=== PATIENT | male | born 1950 | race Caucasian/White ===

== ENCOUNTER 2017-11-17 10:58 | Outpatient (RCR) | payer MEDICARE, OTHER, SELFPAY ==
--- NOTE | 2017-11-18 12:47 | HP.PTEVAL_ITS ---
Patient's Visit Information KEYON JOHN is a 67 year old M referred to Physical Therapy by Yumiko Ball, with a diagnosis of cervical HNP. Date of Evaluation: 11/17/17 Physical Therapist: Gerardo Will - Visit Plan Frequency: 2x /Week Duration: 4-6 Weeks Plan: Start with cervical traction with neck flexion for lower cervical, use of modalities as needed. Light cervical isometrics, scapular strengthening. I will contact physician if we are to address lumbar spine psot surgical at this point in time. - Subjective Subjective: Pt. is here today for his initial evaluation with dianosis of HNP of cervical spine. Pt. reports that he was also to have a script of his lumbar spine after surgery, but we do not have one at this time. I contacted physician about this and I am awaiting respone. Pt. reports neck symptoms started ~4 months ago with radiating L arm N/T. Pt. reports intermittent symptoms without specific cause. Pt. also had back surgery on his lumbar spine 3 weeks ago. He is still in lumbar brace, but is allowed to wean away from as tolerated. He reports seeing physician who has him in the second stage of heeling for her lumbar spine and is allowed to lift upto 10lbs currently. Pt. reports having overall decreased lumbar spine symptoms I am feeling great. Pt. has no signs of infection, no redness and is well healing. Pt. denies pain in either LE, but does have slight numbness in RLE. Pt. reports follwing the BLTPP guidelines without issues. He is sleeping without issues as well. He does not notice any weakness of either UE or LE at this point in time. He is hopeful to regain strength of core and get back to all recreational activities with his grandchildren without issues. - Pain Lumbar spine Pain Intensity (Out of 10): 0 Pain Intensity Range: 0, 1 Tingling in L UE Pain Intensity (Out of 10): 0 Pain Intensity Range: 0, 2 - Objective POSTURE: Pt. has FH positioing, slight increase in thoracic kyphosis, rounded shoulders. He also has slight flexed posture at lumbar spine. Pt. has equal iliac crest heights. PALPATION: Pt. has well healing incision at lumbar spine. Pt. has no increase in symptoms with palpation throughout lumbar paraspinals. Pt. has mild pain at L erector spinea. Pt. has mild increase in symptoms with spring testing to C5-C6. NEUROLOGICAL: Pt. has 2+ achilles and patellar DTR bilaterally. Pt. has 1+ biceps, 2+ triceps on L side, 2+ on R side. Pt. is able to rise on heels and toes without visible weakness or LOB. Pt. has normal sensation to light and sharp touch bilateral UE and LEs. ROM: CERVICAL SPINE: flexion nil loss NE, ext min loss mild increase NW, retraction min loss increase NW, protraction nil loss NE, SB nil loss NE bilat, rotation nil loss NE bilat. MMT: RLE- ankle 5/5 throughout; knee- 5/5 throughout; hip- flexion 4+ /5, abd 4/5, ext 4/5. LLE- ankle 5/5 throughout; knee- 5/5 throughout; hip- flexion 4/5, abd 4/5, ext 4/5. UE strength 5/5 throughout without increase in symptoms. GAIT: Pt. ambulates without AD, no antalgic pattern, sligth flexed posture, no signs of lateral hip weakness. STAIRS: Pt. is able to negotaite without 1 HR wihtout LOB or signs of functional weakness. - Special Tests C/S Radiculapathy - Left Upper limb tension test: Negative C/S Radiculapathy - Right Upper limb tension test: Negative C/S Radiculapathy - Left Spurlings: Positive C/S Radiculapathy - Right Spurlings: Negative C/S Radiculapathy - Left Cervical distraction: Negative C/S Radiculapathy - Right Cervical distraction: Negative C/S Radiculapathy - Left Relief test: Positive C/S Radiculapathy - Right Relief test: Negative Sharp Rob: Negative Vertebral Artery Test: Negative Alar Ligament Test: Negative Cervical Sitting: Protrusion - Mechanical Response: No effect Cervical Sitting: Protrusion - Symptoms During Testing: No effect Cervical Sitting: Protrusion - Symptoms After Testing: No effect Cervical Sitting: Retraction - Mechanical Response: No effect Cervical Sitting: Retraction - Symptoms During Testing: Increases Cervical Sitting: Retraction - Symptoms After Testing: No worse Cervical Sitting: Retraction-Extension - Mechanical Response: No effect Cerv Sitting: Retraction-Extension - Symptoms During Testing: Increases Cerv Sitting: Retraction-Extension - Symptoms After Testing: No worse Cervical Sitting: Sidebend Right - Mechanical Response: No effect Cervical Sitting: Sidebend Right - Symptoms During Testing: No effect Cervical Sitting: Sidebend Right - Symptoms After Testing: No effect Cervical Sitting: Sidebend Left - Mechanical Response: No effect Cervical Sitting: Sidebend Left - Symptoms During Testing: No effect Cervical Sitting: Sidebend Left - Symptoms After Testing: No effect Cervical Sitting: Rotation Right - Mechanical Response: No effect Cervical Sitting: Rotation Right - Symptoms During Testing: No effect Cervical Sitting: Rotation Right - Symptoms After Testing: No effect Cervical Sitting: Rotation Left - Mechanical Response: No effect Cervical Sitting: Rotation Left - Symptoms During Testing: No effect Cervical Sitting: Rotation Left - Symptoms After Testing: No effect Cervical Sitting: Flexion - Mechanical Response: No effect Cervical Sitting: Flexion - Symptoms During Testing: No effect Cervical Sitting: Flexion - Symptoms After Testing: No effect Cervical Lying: Retraction - Mechanical Response: No effect Cervical Lying: Retraction - Symptoms During Testing: No effect Cervical Lying: Retraction - Symptoms After Testing: No effect - Goals Goal 1:: Pt. to be I with HEP. Goal Time Frame: 4-6 Weeks Goal 2:: Pt. to have increased core strength and hip strength by 1/2 grade of all effected musculature. Goal Time Frame: 4-6 Weeks Goal 3:: Pt. to walk unlimited distances without increase in symptoms. Goal Time Frame: 4-6 Weeks Goal 4:: Pt. to have decreased tingling in LUE by 50% allowing for icnreased quality of life. Goal Time Frame: 4-6 Weeks Goal 5:: Pt. to demonstrate improved posture throughout therapy session indicating improved postural awareness. Goal Time Frame: 4-6 Weeks - Rehabilitation Potential Physical Therapy Diagnosis: Pt. has signs and symptoms consistent with small HNP of cervical spine with minimal radiating symptoms. Pt. has no pain associated yet, but is mostly N/T correlating with lower cervical spine. He has FH positioning with increased thoracic kyphosis (Minimally). He would benefit from postural strengthening, cervical traction and postural reeducation. Rehabilitation Potential: Good - Anticipated Interventions Patient/Client Instruction: Educate patient on: Condition, Plan of Care, Risk Factors, Benefits of Fitness Program For the Purpose of:: To improve health and function, To foster healthy habits, To improve decision making, To facilitate caregiver knowledge, To improve self management, To prevent re-injury, To improve ability to perform tasks related to life management, To improve tolerance to ADL's Therapeutic Exercise to Include: Strength training, Power training, Endurance training, Body mechanics, Postural training, Flexibilty training, Active ROM, Dynamic Lumbar Stabilization For the Purpose of:: To decrease pain, To increase ROM, To improve nutrient delivery to tissue, To improve muscle performance and motor function, To improve ability to perform ADL's, To increase tolerance to activity/condition/ position, To improve performance and independence with ADL's, To decrease level of supervision to perform tasks, To improve ability of physical actions for home /community/work/leisure, To improve gait and locomotor functions, To improve health of tissue Manual Therapy Techniques to Include: Mobilization, Passive ROM, Functional dry needling, Soft tissue mobilization For the Purpose of:: To decrease pain, To increase ROM, To improve nutrient delivery to tissue, To increase oxygenation perfusion, To improve muscle performance and motor function IF ES: Yes Cryotherapy (ice pack, ice massage): Yes Intermittent cervical traction: Yes For the Purpose of:: To decrease pain, To increase ROM, To improve nutrient delivery to tissue, To increase oxygenation perfusion, To improve muscle performance and motor function Thank you for the opportunity to evaluate your patient. For Medicare and Medicare HMO plans, please review the plan of care and approve it. It will need to be FAXED BACK to us at [phone] for Medicare purposes. Please let me know if there are questions or concerns regarding this plan of care. Physician Signature: Date:
--- NOTE | 2018-03-21 12:25 | HP.PTDCNRP_ITS ---
HP - Discharge Summary (1) - Patient Information KEYON JOHN was seen in my office for initial evaluation on 11/17/17. The following Plan of Care was established for this patient: Initial Frequency: 2x /Week Initial Duration: 4-6 Weeks - Anticipated Interventions Patient/Client Instruction: Educate patient on: Condition, Plan of Care, Risk Factors, Benefits of Fitness Program For the Purpose of:: To improve health and function, To foster healthy habits, To improve decision making, To facilitate caregiver knowledge, To improve self management, To prevent re-injury, To improve ability to perform tasks related to life management, To improve tolerance to ADL's Therapeutic Exercise to Include: Strength training, Power training, Endurance training, Body mechanics, Postural training, Flexibilty training, Active ROM, Dynamic Lumbar Stabilization For the Purpose of:: To decrease pain, To increase ROM, To improve nutrient delivery to tissue, To improve muscle performance and motor function, To improve ability to perform ADL's, To increase tolerance to activity/condition/ position, To improve performance and independence with ADL's, To decrease level of supervision to perform tasks, To improve ability of physical actions for home /community/work/leisure, To improve gait and locomotor functions, To improve health of tissue Manual Therapy Techniques to Include: Mobilization, Passive ROM, Functional dry needling, Soft tissue mobilization For the Purpose of:: To decrease pain, To increase ROM, To improve nutrient delivery to tissue, To increase oxygenation perfusion, To improve muscle performance and motor function IF ES: Yes Cryotherapy (ice pack, ice massage): Yes Intermittent cervical traction: Yes For the Purpose of:: To decrease pain, To increase ROM, To improve nutrient delivery to tissue, To increase oxygenation perfusion, To improve muscle performance and motor function This patient was last seen in our office 11/17/17. Pertinent comments regarding their Physical therapy will appear below: Pt. was seen for his initial evaluation of neck and low back pain. Pt. did not return to PT and has not been seen in PT since. Pt. will be DC from PT at this point in time. At this point I will be discontinuing this patient from physical therapy. I would be happy to see this patient again in the future if found appropriate by the physician. Thank you! Gerardo Will
== END 2017-11-17 19:00 | disposition home or self-care (01) ==
LOC: PT 10:58
PROVIDERS: Family Provider Internal Medicine; PCP Internal Medicine; Visit Provider Nurse Practitioner Acute Care
DX: M50.20 Other cervical disc displacement, unspecified cervical region (principal)
CPT/HCPCS: 97163

== ENCOUNTER 2017-12-01 15:34 | Outpatient (RCR) | payer MEDICARE, OTHER, SELFPAY ==
[2017-12-01 17:29] LABS: International Normalized Ratio 2.7; Prothrombin Time (Protime)PT. 27.7 SECONDS (11.7-14.9)
== END 2017-12-01 15:50 | disposition home or self-care (01) ==
LOC: LAB 15:34
PROVIDERS: Family Provider Internal Medicine; PCP Internal Medicine; Visit Provider Internal Medicine Cardiovascular Disease
DX: I48.0 Paroxysmal atrial fibrillation (principal); I10 Essential (primary) hypertension; E78.5 Hyperlipidemia, unspecified; Z79.899 Other long term (current) drug therapy
CPT/HCPCS: 36415; 85610

== ENCOUNTER → 2017-12-28 06:58 | Outpatient (CLI) | payer MEDICARE, OTHER, SELFPAY ==
--- NOTE | 2017-12-28 10:40 | NEURO ---
NCS and/or EMG Patient Report Ordering Doctor: Wendy Howard DATE OF SERVICE: 12/28/17 Is a left upper extremity EMG and nerve conduction study performed on this 67-year-old male with intermittent paresthesias in his left upper extremity in a C6 distribution present for 30 seconds before resolving. Symptoms have been present for several months, cardiac workup was negative. As previously he had pain associated with this however the pain is resolved he now notes non-bothersome intermittent paresthesias. Left upper extremity nerve conduction studies performed. The median motor distal latency is mildly prolonged at the left wrist, which is likely an incidental finding given the patient's symptoms. Median sensory, ulnar motor and sensory and radial sensory responses are normal. The median and ulnar F waves are normal. Left upper extremity needle electromyography is performed. Muscles evaluated included the first dorsal interosseous, abductor pollicis brevis, brachioradialis, biceps, triceps, deltoid muscle, and left C6 and 7 paraspinal musculature. Muscles in a C6 distribution did demonstrate large motor units including the C6 paraspinal muscles as well as the biceps and brachioradialis muscles. All other muscles demonstrated normal insertional activity with absence of pathologic spontaneous activity. Motor unit potential recruitment pattern and amplitude was normal otherwise in all muscles tested. Impression: 1. Mild chronic C6 radiculopathy, which appears to be improving based on symptoms. 2. 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
--- NOTE | 2017-12-28 10:43 | NEURO_ITS ---
NCS and/or EMG Patient Report Ordering Doctor: Wendy Howard DATE OF SERVICE: 12/28/17 Is a left upper extremity EMG and nerve conduction study performed on this 67- year-old male with intermittent paresthesias in his left upper extremity in a C6 distribution present for 30 seconds before resolving. Symptoms have been present for several months, cardiac workup was negative. As previously he had pain associated with this however the pain is resolved he now notes non- bothersome intermittent paresthesias. Left upper extremity nerve conduction studies performed. The median motor distal latency is mildly prolonged at the left wrist, which is likely an incidental finding given the patient's symptoms. Median sensory, ulnar motor and sensory and radial sensory responses are normal. The median and ulnar F waves are normal. Left upper extremity needle electromyography is performed. Muscles evaluated included the first dorsal interosseous, abductor pollicis brevis, brachioradialis, biceps, triceps, deltoid muscle, and left C6 and 7 paraspinal musculature. Muscles in a C6 distribution did demonstrate large motor units including the C6 paraspinal muscles as well as the biceps and brachioradialis muscles. All other muscles demonstrated normal insertional activity with absence of pathologic spontaneous activity. Motor unit potential recruitment pattern and amplitude was normal otherwise in all muscles tested. Impression: 1. Mild chronic C6 radiculopathy, which appears to be improving based on symptoms. 2. 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
== END ==
PROVIDERS: Family Provider Internal Medicine; PCP Internal Medicine; Visit Provider Nurse Practitioner Acute Care
DX: R20.2 Paresthesia of skin (principal); R20.0 Anesthesia of skin
CPT/HCPCS: 95886; 95909

== ENCOUNTER 2018-01-14 14:50 | Outpatient (RCR) | payer MEDICARE, OTHER, SELFPAY ==
[2017-12-24 12:57] LABS: International Normalized Ratio 2.6; Prothrombin Time (Protime)PT. 26.9 SECONDS (11.7-14.9)
[2018-01-14 15:28] LABS: International Normalized Ratio 2.7; Prothrombin Time (Protime)PT. 27.4 SECONDS (11.7-14.9)
== END 2018-01-14 15:00 | disposition home or self-care (01) ==
LOC: LAB 14:50
PROVIDERS: Family Provider Nurse Practitioner; PCP Nurse Practitioner; Visit Provider Internal Medicine Cardiovascular Disease
DX: I48.0 Paroxysmal atrial fibrillation (principal); I10 Essential (primary) hypertension; E78.5 Hyperlipidemia, unspecified; Z79.899 Other long term (current) drug therapy
CPT/HCPCS: 36415; 85610

== ENCOUNTER 2018-02-15 14:44 | Outpatient (RCR) | payer MEDICARE, OTHER, SELFPAY ==
[2018-02-15 17:23] LABS: International Normalized Ratio 2.2; Prothrombin Time (Protime)PT. 24.2 SECONDS (11.7-14.9)
== END 2018-02-15 15:00 | disposition home or self-care (01) ==
LOC: LAB 14:44
PROVIDERS: Family Provider Internal Medicine; PCP Internal Medicine; Visit Provider Internal Medicine Cardiovascular Disease
DX: I48.0 Paroxysmal atrial fibrillation (principal); Z79.01 Long term (current) use of anticoagulants; I10 Essential (primary) hypertension; E78.5 Hyperlipidemia, unspecified
CPT/HCPCS: 36415; 85610

== ENCOUNTER 2018-03-21 10:28 | Outpatient (RCR) | payer MEDICARE, OTHER, SELFPAY ==
[2018-03-21 12:38] LABS: International Normalized Ratio 2.6; Prothrombin Time (Protime)PT. 28.3 SECONDS (11.7-14.9)
== END 2018-03-21 11:00 | disposition home or self-care (01) ==
LOC: LAB 10:28
PROVIDERS: Family Provider Internal Medicine; PCP Internal Medicine; Visit Provider Internal Medicine Cardiovascular Disease
DX: I48.0 Paroxysmal atrial fibrillation (principal); Z79.01 Long term (current) use of anticoagulants
CPT/HCPCS: 36415; 85610

== ENCOUNTER 2018-05-16 14:34 | Outpatient (RCR) | payer MEDICARE, OTHER, SELFPAY ==
[2018-05-03 04:10] LABS: International Normalized Ratio 1.3; Prothrombin Time (Protime)PT. 16.6 SECONDS (11.7-14.9)
[2018-05-04 11:27] LABS: International Normalized Ratio 1.5; Prothrombin Time (Protime)PT. 18.1 SECONDS (11.7-14.9)
[2018-05-16 15:21] LABS: International Normalized Ratio 2.2; Prothrombin Time (Protime)PT. 24.1 SECONDS (11.7-14.9)
== END 2018-05-16 16:00 | disposition home or self-care (01) ==
LOC: LAB 14:34
PROVIDERS: Family Provider Internal Medicine; PCP Internal Medicine; Visit Provider Internal Medicine Cardiovascular Disease
DX: I48.0 Paroxysmal atrial fibrillation (principal); Z79.01 Long term (current) use of anticoagulants
CPT/HCPCS: 36415; 85610

== ENCOUNTER → 2018-05-20 10:20 | Outpatient (CLI) | payer MEDICARE, OTHER, SELFPAY ==
--- NOTE | 2018-05-20 10:23 | RAD_ITS ---
STUDY: X-RAY - CERVICAL SPINE REASON FOR EXAM: Male, 67 years old. Thickness and left arm tingling. TECHNIQUE: 7 view(s) of the cervical spine were obtained including oblique views and flexion and extension views.. COMPARISON: None FINDINGS: Normal anterior atlantoaxial articulation. Normal odontoid process. There is straightening of the normal cervical lordosis. Anterior spondylosis at the C5-C6 and C6-C7 levels with disc space narrowing. Normal visualized intervertebral neuroforamina. The soft tissue structures are unremarkable. RAD/Cerv Spine 4 or 5 Views IMPRESSION: Disc space narrowing and spondylosis at the C5-C6 and C6-C7 levels. Electronically Signed: Leodan Chou MD at 11:14 EDT Tel [phone], Service support ,
== END ==
PROVIDERS: Family Provider Internal Medicine; PCP Internal Medicine; Visit Provider Internal Medicine
DX: M54.2 Cervicalgia (principal)
CPT/HCPCS: 72050

== ENCOUNTER → 2018-06-29 08:19 | Outpatient (CLI) | payer MEDICARE, OTHER, SELFPAY ==
--- NOTE | 2018-06-29 08:21 | US_ITS ---
STUDY: ABDOMINAL ULTRASOUND - RIGHT UPPER QUADRANT REASON FOR VISIT: Male, 67 years old. Fatty liver TECHNIQUE: Ultrasound evaluation of the right upper quadrant was performed with real-time and static rivas-scale imaging. TECHNICAL QUALITY: Adequate. COMPARISON: None. FINDINGS: Liver: The liver measures 18 cm. There is increased echogenicity consistent with fatty infiltration. The bile ducts are within normal limits. There is hepatic color flow. The direction of portal flow is hepatopetal. There is no demonstrated mass lesion. Gallbladder: Normal distended gallbladder. The gallbladder wall measures 2.8 mm. There is a negative sonographic Hartman's sign. There is no pericholecystic fluid. There are no gallstones. Common Bile Duct (C.B.D.): The common bile duct measures 5-6 mm. Pancreas: There is increased echogenicity of the pancreas. There is no demonstrated pancreatic mass or cyst. Right Kidney: Normal size of the right kidney. The right kidney measures 12.7 x 5.3 x 5.1 cm. Normal renal cortex. The right cortex measures 2.0 cm. There is no demonstrated renal mass or cyst. There is no right hydronephrosis. US/Liver IMPRESSION: 1. Hepatic steatosis. 2. No hepatic masses. 3. Echogenic pancreas suggesting fatty replacement. Electronically Signed: Tolu Trinidad MD at 16:15 EDT , Service support ,
== END ==
PROVIDERS: Family Provider Nurse Practitioner; PCP Nurse Practitioner; Visit Provider Internal Medicine
DX: K76.0 Fatty (change of) liver, not elsewhere classified (principal); I48.0 Paroxysmal atrial fibrillation
CPT/HCPCS: 36415; 76705; 85610

== ENCOUNTER 2018-06-29 09:12 | Outpatient (RCR) | payer MEDICARE, OTHER, SELFPAY ==
[2018-06-29 10:23] LABS: International Normalized Ratio 2.3; Prothrombin Time (Protime)PT. 25.2 SECONDS (11.7-14.9)
== END 2018-06-29 11:00 | disposition home or self-care (01) ==
LOC: LAB 09:12
PROVIDERS: Family Provider Internal Medicine; PCP Internal Medicine; Visit Provider Internal Medicine Cardiovascular Disease
DX: I48.0 Paroxysmal atrial fibrillation (principal); Z79.01 Long term (current) use of anticoagulants
CPT/HCPCS: 36415; 85610

== ENCOUNTER 2018-08-12 12:10 | Outpatient (RCR) | payer MEDICARE, OTHER, SELFPAY ==
[2018-08-05 12:05] LABS: International Normalized Ratio 1.4; Prothrombin Time (Protime)PT. 17.5 SECONDS (11.7-14.9)
[2018-08-12 13:43] LABS: International Normalized Ratio 1.8
== END 2018-08-12 13:00 | disposition home or self-care (01) ==
LOC: LAB 12:10
PROVIDERS: Family Provider Internal Medicine; PCP Internal Medicine; Visit Provider Internal Medicine Cardiovascular Disease
DX: I48.0 Paroxysmal atrial fibrillation (principal); Z79.01 Long term (current) use of anticoagulants
CPT/HCPCS: 36415; 85610

== ENCOUNTER → 2018-09-01 12:10 | Outpatient (CLI) | payer MEDICARE, OTHER, SELFPAY ==
--- NOTE | 2018-09-01 12:12 | RAD_ITS ---
STUDY: X-RAY - LEFT SHOULDER REASON FOR EXAM: Male, 68 years old. Left shoulder pain times years. Limited range of motion, injury. TECHNIQUE: 5 view(s) of the shoulder. COMPARISON: None. FINDINGS: There is mild degenerative arthrosis of the glenohumeral articulation. There is hypertrophic osteoarthrosis of the acromioclavicular joint with inferior osseous spur formation. Normal acromion. Normal humeral head and visualized proximal humerus. The soft tissue structures are unremarkable. Normal visualized pulmonary apex. RAD/Shoulder min 2 Views IMPRESSION: Degenerative changes involving the acromioclavicular and glenohumeral joint. Electronically Signed: Carolyn Gaming MD at 7:27 EDT , Service support ,
--- NOTE | 2018-09-01 12:12 | RAD_ITS ---
STUDY: X-RAY - RIGHT ELBOW REASON FOR EXAM: Male, 68 years old. Right elbow pain x2 months, no known injury. TECHNIQUE: 4 view(s) of the elbow. COMPARISON: None. FINDINGS: Normal visualized humerus, radius and ulna. There is mild and moderate degree degenerative arthrosis of the radiocapitellar and ulnotrochlear articulations respectively. There is degeneration along the radial ulnar joint proximally. Spurring noted along the ulnar trochlea. There is positive fat pad sign indicating effusion. Small endplate osteophytes with separation along the triceps tendon insertion. RAD/Elbow min 3 Views IMPRESSION: Moderate degenerative changes as above with joint space effusion. There is no acute displaced fracture or dislocation. Electronically Signed: Carolyn Gaming MD at 7:29 EDT , Service support ,
== END ==
PROVIDERS: Family Provider Internal Medicine; PCP Internal Medicine; Referring Provider Internal Medicine; Visit Provider Internal Medicine
DX: M25.521 Pain in right elbow (principal); M25.512 Pain in left shoulder; I48.0 Paroxysmal atrial fibrillation; Z79.01 Long term (current) use of anticoagulants
CPT/HCPCS: 36415; 73030; 73080; 85610

== ENCOUNTER 2018-09-21 11:59 | Outpatient (RCR) | payer MEDICARE, OTHER, SELFPAY ==
[2018-09-01 13:37] LABS: International Normalized Ratio 1.8; Prothrombin Time (Protime)PT. 20.6 SECONDS (11.7-14.9)
[2018-09-21 12:51] LABS: International Normalized Ratio 2.1; Prothrombin Time (Protime)PT. 23.6 SECONDS (11.7-14.9)
== END 2018-09-21 13:00 | disposition home or self-care (01) ==
LOC: LAB 11:59
PROVIDERS: Family Provider Internal Medicine; PCP Internal Medicine; Referring Provider Internal Medicine Cardiovascular Disease; Visit Provider Internal Medicine Cardiovascular Disease
DX: I48.0 Paroxysmal atrial fibrillation (principal); Z79.01 Long term (current) use of anticoagulants
CPT/HCPCS: 36415; 85610

== ENCOUNTER 2018-10-17 11:37 | Outpatient (RCR) | payer MEDICARE, OTHER, SELFPAY ==
[2018-09-30 10:12] LABS: International Normalized Ratio 2.1; Prothrombin Time (Protime)PT. 23.8 SECONDS (11.7-14.9)
[2018-10-17 12:32] LABS: International Normalized Ratio 2.7; Prothrombin Time (Protime)PT. 28.5 SECONDS (11.7-14.9)
== END 2018-10-21 11:32 | disposition home or self-care (01) ==
LOC: LAB 11:37
PROVIDERS: Family Provider Internal Medicine; PCP Internal Medicine; Referring Provider Internal Medicine Cardiovascular Disease; Visit Provider Internal Medicine Cardiovascular Disease
DX: I48.0 Paroxysmal atrial fibrillation (principal); Z79.01 Long term (current) use of anticoagulants; M24.521 Contracture, right elbow; M19.021 Primary osteoarthritis, right elbow
CPT/HCPCS: 36415; 85610; 97035; 97140; 97530

== ENCOUNTER 2018-11-18 12:30 | Outpatient (RCR) | payer MEDICARE, OTHER, SELFPAY ==
--- NOTE | 2018-11-11 09:02 | HP.OTEVAL_ITS ---
Patient's Visit Information KEYON JOHN is a 68 year old M, referred to Occupational Therapy by NERIS BLANCA, with a diagnosis of contracture/arthritis of R elbow. Date of Evaluation: 10/10/18 Occupational Therapist: Rachel Bishop, OTR/Kristy, CHT - Subjective Subjective: pt. arrives and states that 2 yrs ago started having trouble with elbow and it got stuck in contracture position. pt. reports that the contracture occured again a couple of weeks ago. pt. was given cortisone to reduce the swelling and inflammation in the elbow. pt. reports that he is doing much better now, but still has some residual tightness in the elbow and at times it is difficult for him to complete functional tasks. - Pain R elbow 0 Pain Intensity Range: 0, 1, 2, 3 - Objective Objective/Observation: with arms straight out in front of him, pt. demo about 15 degrees of internal rotation. - ROM Elbow: 0/125 in R and 1/135 in L - Strength Credit Card Interviewer: 90# in R and L Lateral Pinch: 32# in R and 28# in L Tripod Pinch: 24# in R and L - Sensation Sensation Comments: denies - DASH-Disabilities of Arm, Shoulder& Hand DASH Sum: 45 - Goals Goal:: Patient will increase ROM in R elbow by completing strengthening and stretching exercises in order to complete BADL?s and IADL?s. Goal:: Patient will have demo decreased stiffness and report overall decrease in pain of <3 with movement in order to complete BADL?s and IADL?s. Goal:: Patient will demo understanding of joint protection and ECM recommendations for increase I with BADL?s and IADL?s. Goal:: Patient will report an overall increase in I with BADL's and IADL's. Goal:: Patient will report understanding and report completion of HEP program exercises for increased I with BADL's and IADL's. - Rehabilitation General Assessment: pt. presents today with contracture/arthritis of R elbow with no explained cause. pt. presents with decreased ROM and some pain when completing reaching tasks, and difficulty completing BADL's and IADL's. pt. will benefit from OT services 2x/wk for 6 wks. Today, OT provided end range stretches HEP to increase ROM and paraffin to increase circulation and relax mm in the forearm/elbow. Rehabilitation Potential: Good - Anticipated Interventions Anticipated Interventions: A/AAROM/PROM, Triggerpoint Release, Modalities, Joint Protection/Energy Conservation, Ergonomic Education, ADL Training, Home Program - Visit Plan Frequency: 2x /Week Duration: 6 Weeks TEXT: Thank you for the opportunity to evaluate your patient. For Medicare and Medicare HMO plans, please review the plan of care and approve it. It will need to be FAXED BACK to us at [phone] for Medicare purposes. Please let me know if there are questions or concerns regarding this plan of care. Physician Signature: Date:
--- NOTE | 2018-12-20 11:46 | HP.OT.NRP ---
HP - Discharge Summary - Patient Information KEYON JOHN was seen in my office for initial evaluation on 10/10/18. The following Plan of Care was established for this patient: Initial Frequency: 2x /Week Initial Duration: 6 Weeks Plan: cont POC - Anticipated Interventions Anticipated Interventions: A/AAROM/PROM, Triggerpoint Release, Modalities, Joint Protection/Energy Conservation, Ergonomic Education, ADL Training, Home Program This patient was last seen in our office 11/18/18. Pertinent comments regarding their Occupational therapy will appear below: Pt was seen for for 11 visits- he made good gains with is ROM and knowldge of joint protection and ad. eq. Pt did not attend his last session, and due to timelapse in therapy sessions pt is D/C at this time. At this point I will be discontinuing this patient from occupational therapy. I would be happy to see this patient again in the future if found appropriate by the physician. Thank you! Rachel Bishop, OTR/L, CHT
== END 2018-11-18 19:00 | disposition home or self-care (01) ==
LOC: OT 12:30
PROVIDERS: Family Provider Internal Medicine; PCP Internal Medicine
DX: M24.521 Contracture, right elbow (principal); M19.021 Primary osteoarthritis, right elbow
CPT/HCPCS: 97035; 97110; 97140; 97166; 97530

== ENCOUNTER 2018-12-01 15:13 | Outpatient (RCR) | payer MEDICARE, OTHER, SELFPAY ==
[2018-10-14 11:03] VITALS: BMI 40.4
[2018-12-01 16:22] LABS: International Normalized Ratio 2.1; Prothrombin Time (Protime)PT. 23.8 SECONDS (11.7-14.9)
== END 2018-12-01 16:13 | disposition home or self-care (01) ==
LOC: LAB 15:13
PROVIDERS: Family Provider Internal Medicine; PCP Internal Medicine; Referring Provider Internal Medicine Cardiovascular Disease; Visit Provider Internal Medicine Cardiovascular Disease
DX: I48.0 Paroxysmal atrial fibrillation (principal); Z79.01 Long term (current) use of anticoagulants; M24.521 Contracture, right elbow; M19.021 Primary osteoarthritis, right elbow
CPT/HCPCS: 36415; 85610

== ENCOUNTER → 2018-12-17 10:59 | Outpatient (CLI) | payer MEDICARE, OTHER, SELFPAY ==
[2018-12-07 11:13] VITALS: BMI 40.1
--- NOTE | 2018-12-17 11:01 | CT_ITS ---
STUDY: CT ABDOMEN AND PELVIS WITHOUT CONTRAST REASON FOR EXAM: Male, 68 years old. Hematuria, facial lymphoma RADIATION DOSAGE (If Supplied By Facility): CTDIvol = ( 23.19 ) mGy, DLP = ( 1315.51 ) mGycm TECHNIQUE: Transaxial images were obtained from the dome of the diaphragm to the symphysis pubis without oral contrast, and without intravenous contrast. Sagittal and coronal images were reconstructed. Individualized dose optimization techniques were used for this CT. COMPARISON: 06/03/2017 FINDINGS: The visualized lung bases are unremarkable. The visualized portions of the heart are within normal limits. There is decreased attenuation of the liver consistent with steatosis. Normal gallbladder and extrahepatic biliary system. Normal spleen. Normal pancreas. Normal bilateral adrenal glands. Punctate calcifications of the right kidney measure 102 mm on image 89. No hydronephrosis of either kidney. Small exophytic cyst of the left kidney measures 1.6 cm likely representing a simple cyst, stable since the prior study. Normal visualized stomach. Normal small intestine. Normal colon. The appendix is visualized and appears normal. There is diffuse atherosclerotic calcification of the abdominal aorta, without a demonstrated aneurysm. Normal inferior vena cava. Normal retroperitoneum. Normal urinary bladder. Prostate is mildly enlarged with prostate calcifications. Fat-containing inguinal hernias are noted. Normal abdominal wall. Left hip replacement causes moderate spray artifact. There are degenerative changes of the lumbar spine. CT/Abdomen/Pelvis without Cont IMPRESSION: 1. Punctate right nephrolithiasis. No hydronephrosis. 2. Simple left renal cyst. 3. Small fat-containing inguinal hernias 4. Left hip replacement. 5. Hepatic steatosis. Electronically Signed: Tolu Trinidad MD at 23:48 EST , Service support ,
== END ==
PROVIDERS: Family Provider Nurse Practitioner; PCP Nurse Practitioner; Referring Provider Internal Medicine; Visit Provider Internal Medicine
DX: R31.9 Hematuria, unspecified (principal)
CPT/HCPCS: 74176

== ENCOUNTER 2019-01-12 13:42 | Outpatient (RCR) | payer MEDICARE, OTHER, SELFPAY ==
[2018-12-23 09:57] VITALS: BMI 40.4
[2019-01-12 14:44] LABS: International Normalized Ratio 2.1; Prothrombin Time (Protime)PT. 23.6 SECONDS (11.7-14.9)
== END 2019-01-19 14:32 | disposition home or self-care (01) ==
LOC: LAB 13:42
PROVIDERS: Family Provider Nurse Practitioner; PCP Nurse Practitioner; Referring Provider Internal Medicine Cardiovascular Disease; Visit Provider Internal Medicine Cardiovascular Disease
DX: I48.0 Paroxysmal atrial fibrillation (principal); Z79.01 Long term (current) use of anticoagulants
CPT/HCPCS: 36415; 85610

== ENCOUNTER → 2019-01-27 11:00 | Outpatient (CLI) | payer MEDICARE, OTHER, SELFPAY ==
[2019-01-20 14:51] VITALS: BMI 40.1
--- NOTE | 2019-01-27 11:05 | RAD_ITS ---
STUDY: X-RAY - LEFT FOOT CLINICAL: Male, 68 years old. Left foot pain TECHNIQUE: 3 view(s) of the foot. COMPARISON: None. FINDINGS: There is a plantar calcaneal spur. Calcification between the distal tibia and fibula may represent sequela of prior injury. Normal visualized subtalar, talonavicular, calcaneocuboid, tarsal and tarsometatarsal articulations. Normal metatarsi. There is degenerative arthrosis of the metatarsophalangeal joint of the hallux . Normal tibial and fibular sesamoid bones. Normal interphalangeal joint of the great toe. Normal phalanges of the great toe. Normal second through fifth metatarsophalangeal joints. Normal interphalangeal joints and phalanges of the lesser toes. Vascular calcifications present. RAD/Foot min 3 Views IMPRESSION: 1. No fracture or malalignment. No erosive process. 2. Degenerative changes of first MTP joint. 3. Atherosclerosis. 4. Calcaneal spur. Electronically Signed: Tolu Trinidad MD at 16:58 EST , Service support ,
== END ==
PROVIDERS: Family Provider Nurse Practitioner; PCP Nurse Practitioner; Referring Provider Nurse Practitioner; Visit Provider Nurse Practitioner
DX: M79.672 Pain in left foot (principal)
CPT/HCPCS: 73630

== ENCOUNTER 2019-03-10 12:14 | Outpatient (RCR) | payer MEDICARE, OTHER, SELFPAY ==
[2019-01-20 14:51] VITALS: BMI 40.1
[2019-01-30 10:10] VITALS: BMI 40.1
[2019-03-10 12:45] LABS: International Normalized Ratio 1.6; Prothrombin Time (Protime)PT. 19.3 SECONDS (11.7-14.9)
== END 2019-03-21 16:00 | disposition home or self-care (01) ==
LOC: LAB 12:14
PROVIDERS: Family Provider Nurse Practitioner; PCP Nurse Practitioner; Referring Provider Internal Medicine Cardiovascular Disease; Visit Provider Internal Medicine Cardiovascular Disease
DX: I48.0 Paroxysmal atrial fibrillation (principal); Z79.01 Long term (current) use of anticoagulants
CPT/HCPCS: 36415; 85610

== ENCOUNTER 2019-04-07 13:28 | Outpatient (RCR) | payer MEDICARE, OTHER, SELFPAY ==
[2019-01-30 10:10] VITALS: BMI 40.1
[2019-04-07 14:13] LABS: International Normalized Ratio 2.3; Prothrombin Time (Protime)PT. 25.5 SECONDS (11.7-14.9)
== END 2019-04-07 14:38 | disposition home or self-care (01) ==
LOC: LAB 13:28
PROVIDERS: Family Provider Nurse Practitioner; PCP Nurse Practitioner; Referring Provider Internal Medicine Cardiovascular Disease; Visit Provider Internal Medicine Cardiovascular Disease
DX: I48.0 Paroxysmal atrial fibrillation (principal); Z79.01 Long term (current) use of anticoagulants
CPT/HCPCS: 36415; 85610

== ENCOUNTER 2019-05-09 16:21 | Outpatient (RCR) | payer MEDICARE, OTHER, SELFPAY ==
[2019-01-30 10:10] VITALS: BMI 40.1
[2019-05-09 17:29] LABS: International Normalized Ratio 2.3; Prothrombin Time (Protime)PT. 24.9 SECONDS (11.7-14.9)
== END 2019-05-09 23:59 ==
LOC: LAB 16:21
PROVIDERS: Family Provider Nurse Practitioner; PCP Nurse Practitioner; Referring Provider Internal Medicine Cardiovascular Disease; Visit Provider Internal Medicine Cardiovascular Disease
DX: I48.0 Paroxysmal atrial fibrillation (principal); Z79.01 Long term (current) use of anticoagulants
CPT/HCPCS: 85610

== ENCOUNTER → 2019-07-03 13:56 | Outpatient (CLI) | payer MEDICARE, OTHER, SELFPAY ==
[2019-01-30 10:10] VITALS: BMI 40.1
[2019-07-03 14:59] LABS: International Normalized Ratio 2.6
== END ==
PROVIDERS: Family Provider Nurse Practitioner; PCP Nurse Practitioner; Referring Provider Internal Medicine; Visit Provider Internal Medicine
DX: I48.91 Unspecified atrial fibrillation (principal)
CPT/HCPCS: 85610

== ENCOUNTER 2019-08-07 12:24 | Outpatient (RCR) | payer MEDICARE, OTHER, SELFPAY ==
[2019-01-30 10:10] VITALS: BMI 40.1
[2019-08-07 11:03] VITALS: BMI 41.3
[2019-08-07 13:15] LABS: International Normalized Ratio 2.1; Prothrombin Time (Protime)PT. 23.8 SECONDS (11.7-14.9)
== END 2019-08-07 13:00 | disposition home or self-care (01) ==
LOC: LAB 12:24
PROVIDERS: Family Provider Nurse Practitioner; PCP Nurse Practitioner; Referring Provider Internal Medicine Cardiovascular Disease; Visit Provider Internal Medicine Cardiovascular Disease
DX: I48.0 Paroxysmal atrial fibrillation (principal); Z79.01 Long term (current) use of anticoagulants
CPT/HCPCS: 36415; 85610

== ENCOUNTER → 2019-09-26 12:58 | Outpatient (CLI) | payer MEDICARE, OTHER, SELFPAY ==
[2019-09-26 13:28] LABS: International Normalized Ratio 2.1; Prothrombin Time (Protime)PT. 23.1 SECONDS (11.7-14.9)
== END ==
PROVIDERS: Family Provider Nurse Practitioner; PCP Nurse Practitioner; Referring Provider Internal Medicine; Visit Provider Internal Medicine
DX: I48.91 Unspecified atrial fibrillation (principal)
CPT/HCPCS: 85610

== ENCOUNTER → 2019-11-20 11:41 | Outpatient (CLI) | payer MEDICARE, OTHER, SELFPAY ==
--- NOTE | 2019-11-20 11:44 | RAD_ITS ---
HISTORY: NKI. LOW BACK PAIN TECHNIQUE: Lumbar spine 4 views Number of images including paperwork: 4 COMPARISON: None FINDINGS: VERTEBRAE: No acute fracture. VERTEBRAL ALIGNMENT: No traumatic subluxation. DISKS AND JOINTS: Mild to moderate multilevel discogenic degenerative changes, most severe at L3-4. Facet arthropathy, advanced from L3-S1. SOFT TISSUES: Unremarkable paraspinous soft tissues. Vascular calcifications noted. RAD/L/S Spine Min 4 Views IMPRESSION: 1. No acute osseous abnormality. 2. Lumbar spondylosis. at [id number] Reported and signed by: Antionette Abdul MD Electronically Signed: Antionette Abdul MD at 4:47 EST Tel , Service support ,
== END ==
PROVIDERS: Family Provider Internal Medicine; PCP Internal Medicine; Referring Provider Internal Medicine; Visit Provider Internal Medicine
DX: M54.5 Low back pain (principal)
CPT/HCPCS: 72110

== ENCOUNTER 2019-11-21 12:36 | Outpatient (RCR) | payer MEDICARE, OTHER, SELFPAY ==
[2019-11-21 13:50] LABS: International Normalized Ratio 2.2; Prothrombin Time (Protime)PT. 24.4 SECONDS (11.7-14.9)
== END 2019-11-21 18:00 | disposition home or self-care (01) ==
LOC: LAB 12:36
PROVIDERS: Family Provider Nurse Practitioner; PCP Nurse Practitioner; Referring Provider Internal Medicine Cardiovascular Disease; Visit Provider Internal Medicine Cardiovascular Disease
DX: I48.0 Paroxysmal atrial fibrillation (principal); Z79.01 Long term (current) use of anticoagulants
CPT/HCPCS: 36415; 85610

== ENCOUNTER → 2019-11-27 09:55 | Outpatient (CLI) | payer MEDICARE, OTHER, SELFPAY ==
--- NOTE | 2019-11-27 09:58 | US_ITS ---
STUDY: ABDOMINAL ULTRASOUND - RIGHT UPPER QUADRANT REASON FOR VISIT: Male, 69 years old FATTY LIVER TECHNIQUE: Ultrasound evaluation of the right upper quadrant was performed with real-time and static rivas-scale imaging. TECHNICAL QUALITY: Limited. Examination limited due to a combination of factors including obesity and bowel gas. COMPARISON: 06/29/2018. FINDINGS: Liver: The liver measures 19.4 cm. There is increased echogenicity consistent with fatty infiltration. The bile ducts are within normal limits. There is hepatic color flow. The direction of portal flow is hepatopetal. There is no demonstrated mass lesion. Gallbladder: Normal distended gallbladder. The gallbladder wall measures 3.0 mm. There is a negative sonographic Hartman''s sign. There is no pericholecystic fluid. There are no gallstones. Common Bile Duct (C.B.D.): The common bile duct measures 7.0 mm. Pancreas: There is nonvisualization of the pancreas. Right Kidney: Normal size of the right kidney. The right kidney measures 12.5 x 6.0 x 5.2 cm. Normal renal cortex. The right cortex measures 1.7 cm. There is no demonstrated renal mass or cyst. There is no right hydronephrosis. US/Abdomen Limited IMPRESSION: Diffuse fatty liver. No gallstones or signs of acute cholecystitis. Mild distention of the common bile duct, etiology indeterminate. Nonvisualized pancreas, remainder of the right upper quadrant ultrasound unremarkable. Electronically Signed: Eugenia Denton MD at 1:55 EST , Service support ,
== END ==
PROVIDERS: Family Provider Internal Medicine; PCP Internal Medicine; Referring Provider Internal Medicine; Visit Provider Internal Medicine
DX: I65.23 Occlusion and stenosis of bilateral carotid arteries (principal); K76.0 Fatty (change of) liver, not elsewhere classified
CPT/HCPCS: 76705

== ENCOUNTER → 2019-12-01 10:20 | Outpatient (CLI) | payer MEDICARE, OTHER, SELFPAY ==
--- NOTE | 2019-12-01 10:45 | MRI_ITS ---
STUDY: MRI ABDOMEN AND MR CHOLANGIOPANCREATOGRAPHY (MRCP) REASON FOR EXAM: Male, 69 years old patient with incidental finding of dilated common bile duct and fatty liver. TECHNIQUE: Standardized fat and water weighted pulse sequences were obtained in all 3 orthogonal planes. Standard MRCP technique was utilized.. 3-D MIP images are included. Several images are limited by patient motion. COMPARISON: Ultrasound of the abdomen dated November 27, 2019. FINDINGS: The visualized lung bases are unremarkable. The visualized portions of the heart are within normal limits. Normal liver. Gall Bladder: Normal with no distention or demonstrated fixed intraluminal filling defect. Cystic duct: Normal with no demonstrated fixed filling defect. Intrahepatic ducts: Normal visualized intrahepatic ducts with no demonstrated fixed filling defect, dilation or stricture. Common hepatic duct: Normal with no demonstrated fixed filling defect, dilation or stricture. Common bile duct: Normal with no demonstrated fixed filling defect, dilation or stricture. Pancreatic duct: Normal with no demonstrated fixed filling defect, dilation or stricture. Normal spleen. Normal pancreas. Normal bilateral adrenal glands. Normal right kidney. There is a left-sided renal cyst measuring approximately 2.1 cm. Normal visualized stomach. Normal small intestine. Normal colon. The appendix is visualized and appears normal. Normal abdominal aorta. Normal inferior vena cava. Normal retroperitoneum. Normal abdominal wall. Normal osseous structures. MRI/MRCP Abdomen without Contrast IMPRESSION: No MR evidence for choledocholithiasis. Electronically Signed: Zarina Araya MD at 15:40 EST , Service support ,
== END ==
PROVIDERS: Family Provider Internal Medicine; PCP Internal Medicine; Referring Provider Internal Medicine; Visit Provider Internal Medicine
DX: R93.5 Abnormal findings on diagnostic imaging of other abdominal regions, including retroperitoneum (principal); K83.8 Other specified diseases of biliary tract
CPT/HCPCS: 74181

== ENCOUNTER 2019-12-21 10:30 | Outpatient (RCR) | payer MEDICARE, OTHER, SELFPAY ==
--- NOTE | 2019-10-12 12:49 | HP.PTEVAL_ITS ---
Patient's Visit Information KEYON JOHN is a 69 year old M referred to Physical Therapy by Cheryl García DO with a diagnosis of LOW BACK PAIN. Date of Evaluation: 10/12/19 Physical Therapist: Alexei Tong, PT, Cert MDT, OCS - Visit Plan Frequency: 2x /Week Duration: 4 Weeks Plan: PT INTERVENTION 2XWEEK FOR 3WKS AQUATIC PT FOR LUMBAR ROM,LE FLEXABLITY STRENGTHENING,DLS THEN RECHECK TO PROGRESS TO LAND - Subjective Findings: This 69 y/o male presents physical therapy with Low back pain. Patient has lumbar pain many years . Patient has h/o lumbar surgery laminectomy 2016 DR Araya ,Right TKR 2011,left THR LEFT 2004. Patient also had hematoma left leg with caused parathesia/tingling. Patient reports major problems is tightness. Patient also reports falling on bleachers Jul 2019 and against chair caused lat eral side back June 2019.Patient c/o parathesia/tingling . Coughing/sneezing - . Bowel/bladder -. Patient sleeping okay. Patient seen Annual physical recommeded PT. Patient condtion as well as well as comorbities impiars ADL'S ,housework tasks and ADL'S. Patient condition affects QOL.No recent diagnostics. SOCIAL: . VOCATION: retired - Objective POSTURE: mild foward posture. NEURO: c/o parathesia/tingling ,reflexes L3-4L,L4-5,L5-S1 1/3 ,light touch intact. PALPATION: unremrkable. GAIT: reciprocal pattern mild foward posture. MMT: quads/hams 4/5 R ,L 4-/5,hip flexion 4-/5 ankle 4/5. FLEXABLITY: hams mod light. LUMBAR ROM: flexion mod loss,side glides mod loss .extension min/mod loss. FLEXABLITY: hams mod loss - Special Tests L/S Slump test left side: Negative L/S Slump test right side: Negative L/S Left Straight Leg Raise: Negative L/S Right Straight Leg Raise: Negative Lumbar Standing: Flexion - Mechanical Response: No effect Lumbar Standing: Flexion - Symptoms During Testing: Increases Lumbar Standing: Flexion - Symptoms After Testing: No worse Lumbar Standing: Extension - Mechanical Response: No effect Lumbar Standing: Extension - Symptoms During Testing: Increases Lumbar Standing: Extension - Symptoms After Testing: Worse Lumbar Standing: Right Side Glides - Mechanical Response: No effect Lumbar Standing: Right Side [place] - Symptoms During Testing: Increases Lumbar Standing: Right Side [place] - Symptoms After Testing: No worse Lumbar Standing: Left Side [place] - Mechanical Response: No effect Lumbar Standing: Left Side [place] - Symptoms During Testing: Increases Lumbar Standing: Left Side [place] - Symptoms After Testing: No worse - Goals Goal 1:: Independant with Aquatic Therapy and HEP Goal Time Frame: 4-6 Weeks Goal 2:: Patient decrease symptoms by 60% or > to improve function Goal Time Frame: 4-6 Weeks Goal 3:: Patient to improve lumbar ROM for function of recovey . Goal Time Frame: 4-6 Weeks Goal 4:: Patient to improve back owestry score bt 5 points or > to improve QOL. Goal Time Frame: 4-6 Weeks Goal 5:: Patient to ablity to walk extended distance with less pain. Goal Time Frame: 4-6 Weeks - Rehabilitation Potential Physical Therapy Diagnosis: This patient has lumbar pain laong with other comorb ities with h/o surgery lumbar ,left THR ,right TKR with pain stiffness in lumbar ,decrease ROM for function of recovery ,strength thus benifit from THERAPY. Rehabilitation Potential: Good - Anticipated Interventions Patient/Client Instruction: Educate patient on: Condition, Plan of Care For the Purpose of:: To decrease pain, To increase ROM, To improve muscle performance and motor function, To increase tolerance to activity/condition/position, To improve ability of physical actions for home/community/work/leisure, To improve health of tissue, To decrease soft tissue restriction, To increase flexibility/ROM, To improve ability to perform tasks related to life management Therapeutic Exercise to Include: Strength training, Endurance training, Body mechanics, Postural training, Flexibilty training, In an aquatic setting, Active ROM, Dynamic Lumbar Stabilization For the Purpose of:: To decrease pain, To increase ROM, To improve muscle performance and motor function, To improve ability to perform ADL's, To increase tolerance to activity/condition/position, To improve ability of physical actions for home/community/work/leisure, To improve health of tissue, To decrease soft tissue restriction, To increase flexibility/ROM, To reduce risk of recurrence, To improve ability to perform tasks related to life management Thank you for the opportunity to evaluate your patient. For Medicare and Medicare HMO plans, please review the plan of care and approve it. It will need to be FAXED BACK to us at [phone] for Medicare purposes. For Medicare only, by signing this I certify the plan of care. Please let me know if there are questions or concerns regarding this plan of care. Physician Signature: Date:
--- NOTE | 2019-11-21 11:17 | HP.PTREVAL_ITS ---
Cheryl García, , It has been my pleasure to treat KEYON JOHN over the last 8 visits for LOW BACK PAIN. Please see the progress note below for an update on the physical therapy plan of care! Subjective: Pain got worse couple days ago Wednesday severe pain right. side ,Seen Dr bonilla x-rays showed DDD severe L3-4. Predisone ,and hydrocodine,muscle relaxer Objective/Function: POSTURE: MILD POSTURE. GAIT: RECIPROCAL PATTERN MILD FOWARD POSTURE. SYMMTRIES: ALIGHN. MMT: QUADS/HAMS R 4-/5,LE 4/5HIP FLEXION 4-./5. - SLR Plan Plan: CONT WITH POC WITH PROGRESSION OF DLS,POSTURAL EX'S,LE FLEXABLITY STRENGTHENING,MODALTIES NEEDED Goals Goal 1:: Independant with Aquatic Therapy and HEP Goal Time Frame: 4-6 Weeks Goal Progress: Progressing Goal 2:: Patient decrease symptoms by 60% or > to improve function Goal Time Frame: 4-6 Weeks Goal Progress: Progressing Goal 3:: Patient to improve lumbar ROM for function of recovey . Goal Time Frame: 4-6 Weeks Goal Progress: Progressing Goal 4:: Patient to improve back owestry score bt 5 points or > to improve QOL. Goal Time Frame: 4-6 Weeks Goal Progress: Progressing Goal 5:: Patient to ablity to walk extended distance with less pain. Goal Time Frame: 4-6 Weeks Goal Progress: Progressing Anticipated Interventions Patient/Client Instruction: Educate patient on: Condition, Plan of Care For the Purpose of:: To decrease pain, To increase ROM, To improve muscle performance and motor function, To increase tolerance to activity/condition/position, To improve ability of physical actions for home/community/work/leisure, To improve health of tissue, To decrease soft tissue restriction, To increase flexibility/ROM, To improve ability to perform tasks related to life management Therapeutic Exercise to Include: Strength training, Endurance training, Body mechanics, Postural training, Flexibilty training, In an aquatic setting, Active ROM, Dynamic Lumbar Stabilization For the Purpose of:: To decrease pain, To increase ROM, To improve muscle performance and motor function, To improve ability to perform ADL's, To increase tolerance to activity/condition/position, To improve ability of physical actions for home/community/work/leisure, To improve health of tissue, To decrease soft tissue restriction, To increase flexibility/ROM, To reduce risk of recurrence, To improve ability to perform tasks related to life management Please do not hesitate to contact me at [phone] by phone or if you have questions or concerns regarding this new plan of care! Sincerely, Alexei Tong, PT, Cert MDT, OCS
--- NOTE | 2019-12-21 11:13 | HP.PTDCSUM ---
HP - PT D/C Summary It has been my pleasure to treat KEYON JOHN under orders from Cheryl García DO, for the diagnosis of LOW BACK PAIN for a total of 14 visit(s). Discharge Date: 12/21/19 Please see the following information for a summary of their discharge status. - Subjective Subjective: READT TO BE D/C TO EXERCISE ON MY OWN.I STILL HAVE THAT AREA RIGHT SIDE IS TIGHT . SYMTOMS CAN INCREASE WITH FLEXION/BEDING. - Pain Lumbar Pain Intensity (Out of 10): 1 LLE Pain Intensity (Out of 10): 0 - Overall Improvement % Improvement: 45 - Objective Objective/Function: POSTURE: mild foward posture. GAIT: reciprocal pattern. PALAPTION: RIGHT L-S. MMT: quads/hams 4/5,hip flexion right 4-/5,eft 4/5. LUMBAR ROM : flexion min loss ,extesnion mod loss mild pain. FKLEXABLITY: hams mild tight - Goals Goal 1:: Independant with Aquatic Therapy and HEP Goal Progress: Goal Met Goal 2:: Patient decrease symptoms by 60% or > to improve function Goal Progress: Goal Met Goal 3:: Patient to improve lumbar ROM for function of recovey . Goal Progress: Goal Met Goal 4:: Patient to improve back owestry score bt 5 points or > to improve QOL. Goal Progress: Goal Met Goal 5:: Patient to ablity to walk extended distance with less pain. Goal Progress: Goal Met - Plan Plan: d/c to HW and hep - D/C Information Discharge Comments: HEP AND HW If there are questions or concerns regarding this patient's physical therapy, please feel free to call me at [phone]. Thank you for the referral of this patient. Sincerely, Alexei Tong, PT, Cert MDT, OCS
== END 2019-12-21 19:00 | disposition home or self-care (01) ==
LOC: PT 10:30
PROVIDERS: Family Provider Nurse Practitioner; PCP Nurse Practitioner; Referring Provider Internal Medicine; Visit Provider Internal Medicine
DX: M54.5 Low back pain (principal)
CPT/HCPCS: 97110; 97113; 97162; 97530

== ENCOUNTER → 2020-01-10 09:57 | Outpatient (CLI) | payer MEDICARE, OTHER, SELFPAY ==
[2019-12-07 14:48] VITALS: BMI 41.1
--- NOTE | 2020-01-10 10:02 | CDU_ITS ---
Reason For Study: STENOSIS Rt. Velocities/BP Lt. Velocities/BP Prox CCA 90/7 cm/sec. Prox CCA 125/16 cm/sec. Mid CCA 89/13 cm/sec. Mid CCA 94/20 cm/sec. Dist CCA 83/17 cm/sec. Dist CCA 81/13 cm/sec. Prox ICA 63/19 cm/sec. Prox ICA 67/18 cm/sec. Mid ICA 71/18 cm/sec. Mid ICA 80/24 cm/sec. Dist ICA 61/18 cm/sec. Dist ICA 66/13 cm/sec. Rt. ICA/CCA = .8. Lt. ICA/CCA = .6. Prox ECA 124/12 cm/sec. Prox ECA 121/15 cm/sec. Rt. Vert. 67/12 cm/sec. Lt. Vert. 67/22 cm/sec. Right Extracranial There is homogeneous, irregular atherosclerotic plaque noted in the right common carotid artery. There is homogeneous, irregular atherosclerotic plaque noted in the right internal carotid artery. There is homogeneous, smooth atherosclerotic plaque noted in the right external carotid artery. Antegrade flow is noted in the right vertebral artery. Left Extracranial There is homogeneous, smooth atherosclerotic plaque noted in the left common carotid artery. There is homogeneous, smooth atherosclerotic plaque noted in the left internal carotid artery. There is no significant atherosclerotic plaque noted in the left external carotid artery. Antegrade flow is noted in the left vertebral artery. Procedure Carotid Duplex [id number]. Exam performed in department. Interpretation Summary Minimal irregular plaque of the proximal right internal carotid <50% stenosis right internal carotid <50% stenosis right external carotid Minimal smooth plaque in the proximal left internal carotid <50% stenosis left internal carotid <50% stenosis left external carotid Patent, antegrade, bilateral vertebrals No change from the previous exam on 08/23/17 Ordering Physician: Cheryl García Referring Physician: Cheryl García Performed By: Thalia Vieira, RDCS, RVT
== END ==
PROVIDERS: PCP Internal Medicine; Referring Provider Internal Medicine; Visit Provider Internal Medicine
DX: I65.23 Occlusion and stenosis of bilateral carotid arteries (principal)
CPT/HCPCS: 93880

== ENCOUNTER 2020-02-26 14:44 | Outpatient (RCR) | payer MEDICARE, OTHER, SELFPAY ==
[2019-12-07 14:48] VITALS: BMI 41.1
[2020-02-26 15:43] LABS: International Normalized Ratio 2.1; Prothrombin Time (Protime)PT. 22.6 SECONDS (11.7-14.9)
== END 2020-03-21 18:00 | disposition home or self-care (01) ==
LOC: LAB 14:44
PROVIDERS: Family Provider Internal Medicine; PCP Internal Medicine; Referring Provider Internal Medicine Cardiovascular Disease; Visit Provider Internal Medicine Cardiovascular Disease
DX: I48.0 Paroxysmal atrial fibrillation (principal); Z79.01 Long term (current) use of anticoagulants
CPT/HCPCS: 36415; 85610

== ENCOUNTER → 2020-04-29 10:56 | Outpatient (CLI) | payer MEDICARE, OTHER, SELFPAY ==
[2019-12-07 14:48] VITALS: BMI 41.1
--- NOTE | 2020-04-29 11:01 | RAD_ITS ---
STUDY: X-RAY - LEFT ANKLE REASON FOR EXAM: Lateral posterior ankle pain, no trauma. TECHNIQUE: 3 view(s) of the ankle. COMPARISON: Radiographs of the left foot 01/27/2019. FINDINGS: Normal visualized distal tibia and fibula. Normal medial and lateral malleoli. Normal tibiotalar articulation and ankle mortise. There is a plantar calcaneal enthesophyte. The visualized subtalar, talonavicular, calcaneocuboid and tarsal articulations are normal. There is soft tissue swelling. There is ossification in the distal tibiofibular syndesmosis secondary to remote injury. RAD/Ankle min 3 Views IMPRESSION: Soft tissue swelling. 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 Plantar calcaneal enthesophyte. Electronically Signed: Vivek Baca MD at 12:54 EDT Tel , Service support ,
== END ==
PROVIDERS: PCP Internal Medicine; Referring Provider Internal Medicine; Visit Provider Internal Medicine
DX: M25.572 Pain in left ankle and joints of left foot (principal)
CPT/HCPCS: 73610

== ENCOUNTER 2020-05-03 12:21 | Outpatient (RCR) | payer MEDICARE, OTHER, SELFPAY ==
[2019-12-07 14:48] VITALS: BMI 41.1
[2020-05-03 13:38] LABS: International Normalized Ratio 1.9; Prothrombin Time (Protime)PT. 21.1 SECONDS (11.7-14.9)
== END 2020-05-03 18:00 | disposition home or self-care (01) ==
LOC: LAB 12:21
PROVIDERS: Family Provider Internal Medicine; PCP Internal Medicine; Referring Provider Internal Medicine Cardiovascular Disease; Visit Provider Internal Medicine Cardiovascular Disease
DX: I48.0 Paroxysmal atrial fibrillation (principal); Z79.01 Long term (current) use of anticoagulants
CPT/HCPCS: 36415; 85610

== ENCOUNTER 2020-06-11 12:32 | Outpatient (RCR) | payer MEDICARE, OTHER, SELFPAY ==
[2019-12-07 14:48] VITALS: BMI 41.1
[2020-06-11 13:46] LABS: International Normalized Ratio 1.8; Prothrombin Time (Protime)PT. 20.4 SECONDS (11.7-14.9)
== END 2020-06-11 18:00 | disposition home or self-care (01) ==
LOC: LAB 12:32
PROVIDERS: Family Provider Internal Medicine; PCP Internal Medicine; Referring Provider Internal Medicine Cardiovascular Disease; Visit Provider Internal Medicine Cardiovascular Disease
DX: I48.0 Paroxysmal atrial fibrillation (principal); Z79.01 Long term (current) use of anticoagulants
CPT/HCPCS: 36415; 85610

== ENCOUNTER → 2020-07-15 07:42 | Outpatient (CLI) | payer MEDICARE, OTHER, SELFPAY ==
[2020-06-27 10:37] VITALS: BMI 40.7
--- NOTE | 2020-07-15 07:45 | CT_ITS ---
STUDY: CT ABDOMEN AND PELVIS WITHOUT CONTRAST REASON FOR EXAM: Male, 70 years old. MICROSCOPIC HEMATURIA, HX-LYMPHOMA, HTN,DB RADIATION DOSAGE (If Supplied By Facility): CTDIvol = ( 44.67 ) mGy, DLP = ( 2310.15 ) mGycm TECHNIQUE: Transaxial images were obtained from the dome of the diaphragm to the symphysis pubis without oral contrast, and without intravenous contrast. Sagittal and coronal images were reconstructed. Individualized dose optimization techniques were used for this CT. COMPARISON: Comparison is made with prior study dated 12/17/2018. FINDINGS: The visualized lung bases are unremarkable. The visualized portions of the heart are within normal limits. There is decreased attenuation of the liver consistent with steatosis. Normal gallbladder and extrahepatic biliary system. Normal spleen. There is diffuse atrophy of the pancreas. Normal bilateral adrenal glands. Normal right kidney. Stable 1.6 cm cyst in the left kidney. Normal visualized stomach. Normal small intestine. Normal colon. The appendix is visualized and appears normal. There is diffuse atherosclerotic calcification of the abdominal aorta, without a demonstrated aneurysm. Normal inferior vena cava. There is borderline retroperitoneal lymphadenopathy with enlarged nodes no greater than 10mm in the short axis diameter. The bladder is contracted. There is enlargement of the prostate gland. The prostate measures 5.8 signed by 4.9 cm. There is a small umbilical hernia containing fat. Small bilateral inguinal hernias containing fat. There are diffuse degenerative changes of the visualized lumbar spine. The patient is status post left hip replacement. CT/Abdomen/Pelvis without Cont IMPRESSION: Diffuse fatty infiltration of the liver. Stable examination. Electronically Signed: Leodan Chou, at 15:02 EDT , Service support ,
== END ==
PROVIDERS: PCP Internal Medicine; Referring Provider Internal Medicine; Visit Provider Internal Medicine
DX: R31.29 Other microscopic hematuria (principal)
CPT/HCPCS: 74176

== ENCOUNTER 2020-08-05 14:17 | Outpatient (RCR) | payer MEDICARE, OTHER, SELFPAY ==
[2019-12-07 14:48] VITALS: BMI 41.1
[2020-06-27 10:37] VITALS: BMI 40.7
[2020-08-05 15:35] LABS: International Normalized Ratio 2.4
== END 2020-08-05 18:00 | disposition home or self-care (01) ==
LOC: LAB 14:17
PROVIDERS: Family Provider Internal Medicine; PCP Internal Medicine; Referring Provider Internal Medicine Cardiovascular Disease; Visit Provider Internal Medicine Cardiovascular Disease
DX: I48.0 Paroxysmal atrial fibrillation (principal); Z79.01 Long term (current) use of anticoagulants
CPT/HCPCS: 36415; 85610

== ENCOUNTER 2020-09-05 14:47 | Outpatient (RCR) | payer MEDICARE, OTHER, SELFPAY ==
[2020-06-27 10:37] VITALS: BMI 40.7
[2020-09-05 16:37] LABS: International Normalized Ratio 1.9; Prothrombin Time (Protime)PT. 21.6 SECONDS (11.7-14.9)
== END 2020-09-05 18:00 | disposition home or self-care (01) ==
LOC: LAB 14:47
PROVIDERS: Family Provider Internal Medicine; PCP Internal Medicine; Referring Provider Internal Medicine Cardiovascular Disease; Visit Provider Internal Medicine Cardiovascular Disease
DX: I48.0 Paroxysmal atrial fibrillation (principal); Z79.01 Long term (current) use of anticoagulants
CPT/HCPCS: 36415; 85610

== ENCOUNTER 2020-10-08 15:57 | Outpatient (RCR) | payer MEDICARE, OTHER, SELFPAY ==
[2020-06-27 10:37] VITALS: BMI 40.7
[2020-10-08 17:44] LABS: International Normalized Ratio 2.3; Prothrombin Time (Protime)PT. 24.9 SECONDS (11.7-14.9)
== END 2020-10-08 18:00 | disposition home or self-care (01) ==
LOC: LAB 15:57
PROVIDERS: Family Provider Internal Medicine; PCP Internal Medicine; Referring Provider Internal Medicine Cardiovascular Disease; Visit Provider Internal Medicine Cardiovascular Disease
DX: I48.0 Paroxysmal atrial fibrillation (principal); Z79.01 Long term (current) use of anticoagulants
CPT/HCPCS: 36415; 85610

== ENCOUNTER 2021-01-23 10:10 | Outpatient (RCR) | payer MEDICARE, OTHER, SELFPAY ==
[2020-12-11 14:02] VITALS: BMI 39.9
[2021-01-23] MEDS: COVID-19 VACC, MRNA(PFIZER)/PF 30 MCG/0.3 ML SYRINGE IM (16:59)
[2021-02-13] MEDS: COVID-19 VACC, MRNA(PFIZER)/PF 30 MCG/0.3 ML SYRINGE IM (16:18)
== END 2021-04-29 23:59 ==
LOC: IMMUN 10:10
PROVIDERS: PCP Internal Medicine; Visit Provider Family Medicine
DX: Z23 Encounter for immunization (principal)
CPT/HCPCS: 0001A; 0002A; 91300

== ENCOUNTER 2021-01-23 15:19 | Outpatient (RCR) | payer MEDICARE, OTHER, SELFPAY ==
[2020-06-27 10:37] VITALS: BMI 40.7
[2020-12-11 14:02] VITALS: BMI 39.9
[2021-01-23 16:27] LABS: International Normalized Ratio 1.9; Prothrombin Time (Protime)PT. 21.6 SECONDS (11.7-14.9)
== END 2021-01-23 18:00 | disposition home or self-care (01) ==
LOC: LAB 15:19
PROVIDERS: Family Provider Internal Medicine; PCP Internal Medicine; Referring Provider Internal Medicine Cardiovascular Disease; Visit Provider Internal Medicine Cardiovascular Disease
DX: I48.0 Paroxysmal atrial fibrillation (principal); Z79.01 Long term (current) use of anticoagulants
CPT/HCPCS: 36415; 85610

== ENCOUNTER → 2021-02-12 10:00 | Outpatient (CLI) | payer MEDICARE, OTHER, SELFPAY ==
[2020-12-11 14:02] VITALS: BMI 39.9
--- NOTE | 2021-02-12 10:03 | CDU_ITS ---
Reason For Study: Carotid stenosis Rt. Velocities/BP Lt. Velocities/BP Prox CCA 86.5/10.8 cm/sec. Prox CCA 76.8/9.7 cm/sec. Mid CCA 70.8/9.55 cm/sec. Mid CCA 71.1/11.6 cm/sec. Dist CCA 78.6/13.4 cm/sec. Dist CCA 73/12.6 cm/sec. Prox ICA 64.2/9 cm/sec. Prox ICA 36.6/8 cm/sec. Mid ICA 56.9/10.2 cm/sec. Mid ICA 46.5/13.5 cm/sec. Dist ICA 59.3/15.1 cm/sec. Dist ICA 69.6/17.9 cm/sec. Rt. ICA/CCA = 0.82. Lt. ICA/CCA = 0.95. Prox ECA 147.7/7.2 cm/sec. Prox ECA 102.3/11.4 cm/sec. Rt. Vert. 24.4/10.9 cm/sec. Lt. Vert. 60.8/14.6 cm/sec. Right Extracranial There is homogeneous, smooth atherosclerotic plaque noted in the right common carotid artery. There is heterogeneous, irregular atherosclerotic plaque noted in the right internal carotid artery. There is homogeneous, smooth atherosclerotic plaque noted in the right external carotid artery. Antegrade flow is noted in the right vertebral artery. Abnormal waveform noted in the right vertebral artery. Left Extracranial There is homogeneous, smooth atherosclerotic plaque noted in the left common carotid artery. There is homogeneous, smooth atherosclerotic plaque noted in the left internal carotid artery. There is intimal thickening but no significant atherosclerotic plaque noted in the left external carotid artery. Antegrade flow is noted in the left vertebral artery. Procedure Carotid Duplex [id number]. This is a Carotid Duplex examination using B-mode, color flow and specral Doppler. Exam performed in department. Interpretation Summary Minimal calcific plaque in the proximal right internal carotid artery with less than 50% stenosis Less than 50% stenosis right external carotid artery Smooth plaque at the proximal left internal carotid artery with less than 50% stenosis Less than 50% stenosis left external carotid artery Patent and antegrade vertebral arteries bilaterally No change from the previous examination of January 10, 2020 Ordering Physician: Cheryl García Referring Physician: Cheryl García Performed By: Parvin Crowell RVT
== END ==
PROVIDERS: PCP Internal Medicine; Referring Provider Internal Medicine; Visit Provider Internal Medicine
DX: I65.23 Occlusion and stenosis of bilateral carotid arteries (principal)
CPT/HCPCS: 93880

== ENCOUNTER → 2021-03-26 08:38 | Outpatient (CLI) | payer MEDICARE, OTHER, SELFPAY ==
[2020-12-11 14:02] VITALS: BMI 39.9
== END ==
PROVIDERS: PCP Internal Medicine; Referring Provider Internal Medicine Cardiovascular Disease; Visit Provider Internal Medicine Cardiovascular Disease
DX: I48.0 Paroxysmal atrial fibrillation (principal); Z79.01 Long term (current) use of anticoagulants
CPT/HCPCS: 93225; 93226

== ENCOUNTER 2021-06-11 16:30 | Outpatient (RCR) | payer MEDICARE, OTHER, SELFPAY ==
[2020-12-11 14:02] VITALS: BMI 39.9
--- NOTE | 2021-02-27 11:30 | HP.PTEVAL_ITS ---
Patient's Visit Information KEYON JOHN is a 70 year old M referred to Physical Therapy by Dr. Cheryl García DO with a diagnosis of LBP/FLEXABILITY. Date of Evaluation: 02/27/21 Physical Therapist: Alexei Tong, PT, Cert MDT, OCS - Visit Plan Frequency: 2x /Week Duration: 4 Weeks Plan: PT INTERVENTIONS AQUATIC THERAPY FOR LUMBAR ROM,DLS,POSTURAL EX'S ,BLE FLEXABILITY, THEN PROGRESS TO LAND BASED THERAPY - Subjective This 70 y/o male presents to physical therapy with LBP right > left. Patient has had laminectomy 2017 which helped. But overtime pain increases with activity and function. Patient has h/o left THR and TKR right. Aggraveting factors bending,lifting ,jarring and extended walking /standing. Alleviating aquatics ,rest and sitting. Major limiations is loss of flexablity. Patient had incidant falling last year left leg foot dragged . Patient as parathesia in left leg. Coughing/sneezing -.Bowel/bladdr -. No night pain . Patient has had PT in past which helped.Patient has had prior epidural injections prior to surgery pain management.Patient pain and stiffness affects QOL and function. Patient symptoms affects function and housework tasks. SOCAIL: divored. VOCATION: retired - Pain Bilateral Back Pain Intensity (Out of 10): 4 Pain Intensity Range: 10 - Objective POSTURE: rounded shoulder ,mild foward posture. GAIT: recipocal pattern mild foward posture. NEURO: c/o parathesia left leg light touch intacr,reflexes 1/3 L3-4,L4-5,L5-S1. SYMMTRIES: align. FLEXABLITY: HAMS MOD TIGHT. LUMBAR ROM: flexion mod loss,extension min loss,side glides min loss with decrease curve reversal. MMT: quads/hams 4/5,hip flexion 4-/5,ankle 5/5,hip abduction 4-/5 - Special Tests L/S Slump test left side: Negative L/S Slump test right side: Negative L/S Left Straight Leg Raise: Negative L/S Right Straight Leg Raise: Negative Lumbar Standing: Flexion - Mechanical Response: No effect Lumbar Standing: Flexion - Symptoms During Testing: Increases Lumbar Standing: Flexion - Symptoms After Testing: No worse Lumbar Standing: Extension - Mechanical Response: No effect Lumbar Standing: Extension - Symptoms During Testing: No effect Lumbar Standing: Extension - Symptoms After Testing: No effect Lumbar Standing: Right Side Glides - Mechanical Response: No effect Lumbar Standing: Right Side [place] - Symptoms During Testing: No effect Lumbar Standing: Right Side [place] - Symptoms After Testing: No effect Lumbar Standing: Left Side [place] - Mechanical Response: No effect Lumbar Standing: Left Side [place] - Symptoms During Testing: No effect Lumbar Standing: Left Side [place] - Symptoms After Testing: No effect - Goals Goal 1:: i with Aquatic Therapy program and land based program . Goal Time Frame: 4-6 Weeks Goal 2:: Patient to decrease LBP by 50 % or > to improve function Goal Time Frame: 4-6 Weeks Goal 3:: Patient to improve lumbar ROM to improve function of recovery Goal Time Frame: 4-6 Weeks Goal 4:: Patient to improve back owestry score by 5 points or > improve QOL. Goal Time Frame: 4-6 Weeks Goal 5:: Patient improve LE flexability for function to put on shoes. Goal Time Frame: 4-6 Weeks - Rehabilitation Potential Physical Therapy Diagnosis: This patient has LBP with h/o laminectomy ,left THR and right TKR along with decrease ROM ,pain and weakness ,flexability tight hamstrings thus benifit from skilled PT Rehabilitation Potential: Good - Anticipated Interventions Patient/Client Instruction: Educate patient on: Condition, Plan of Care For the Purpose of:: To decrease pain, To increase ROM, To improve muscle performance and motor function, To improve ability to perform ADL's, To increase tolerance to activity/condition/position, To improve ability of physical actions for home/community/work/leisure, To improve health of tissue, To decrease soft tissue restriction, To increase flexibility/ROM Therapeutic Exercise to Include: Strength training, Body mechanics, Postural training, Flexibilty training, In an aquatic setting, Active ROM, Dynamic Lumbar Stabilization Comment: BLE For the Purpose of:: To decrease pain, To increase ROM, To improve muscle performance and motor function, To improve ability to perform ADL's, To improve performance and independence with ADL's, To improve ability of physical actions for home/community/work/leisure, To improve health of tissue, To decrease soft tissue restriction, To increase flexibility/ROM Thank you for the opportunity to evaluate your patient. For Medicare and Medicare HMO plans, please review the plan of care and approve it. It will need to be FAXED BACK to us at [phone] for Medicare purposes. For Medicare only, by signing this I certify the plan of care. Please let me know if there are questions or concerns regarding this plan of care. Physician Signature: Dat e:
--- NOTE | 2021-04-04 14:35 | HP.PTREVAL_ITS ---
Dr. Cheryl García, DO, It has been my pleasure to treat KEYON JOHN over the last 10 visits for LBP/FLEXABILITY. Please see the progress note below for an update on the physical therapy plan of care! Subjective: Patient to cont with Aquatic therapy.. Patient c/o tightness in quads. Pateint antonieta to put on socks ,but able function chicken picker things from floor Objective/Function: POSTURE: mild forward posture. GAIT: reciprocal pattern mild forward posture. FLEXIBILITY: hams mod tight,piriformis mod tight. MMT: quads/hams 4/5,hip flexion/abduction 4-/5,ankle 4/5. SLR- Plan Plan: CONT WITH POC 2XWK FOR 4WEEKS. PT INTERVENTIONS AQUATIC THERAPY FOR LUMBAR ROM,DLS,POSTURAL EX'S ,BLE FLEXABILITY, THEN PROGRESS TO LAND BASED THERAPY Goals Goal 1:: i with Aquatic Therapy program and land based program . Goal Time Frame: 4-6 Weeks Goal Progress: Goal Met Goal 2:: Patient to decrease LBP by 70 % or > to improve function .(NEW GOAL) Goal Time Frame: 4-6 Weeks Goal 3:: Patient to improve lumbar ROM to improve function of recovery Goal Time Frame: 4-6 Weeks Goal Progress: Progressing Goal 4:: Patient to improve back owestry score by 5 points or > improve QOL. Goal Time Frame: 4-6 Weeks Goal Progress: Progressing Goal 5:: Patient improve LE flexability for function to put on shoes. Goal Time Frame: 4-6 Weeks Goal Progress: Progressing Anticipated Interventions Patient/Client Instruction: Educate patient on: Condition, Plan of Care For the Purpose of:: To decrease pain, To increase ROM, To improve muscle performance and motor function, To improve ability to perform ADL's, To increase tolerance to activity/condition/position, To improve ability of physical actions for home/community/work/leisure, To improve health of tissue, To decrease soft tissue restriction, To increase flexibility/ROM Therapeutic Exercise to Include: Strength training, Body mechanics, Postural training, Flexibilty training, In an aquatic setting, Active ROM, Dynamic Lumbar Stabilization Comment: BLE For the Purpose of:: To decrease pain, To increase ROM, To improve muscle performance and motor function, To improve ability to perform ADL's, To improve performance and independence with ADL's, To improve ability of physical actions for home/community/work/leisure, To improve health of tissue, To decrease soft tissue restriction, To increase flexibility/ROM Please do not hesitate to contact me at [phone] by phone or if you have questions or concerns regarding this new plan of care! Sincerely, Alexei Tong, PT, Cert MDT, OCS
--- NOTE | 2021-05-08 10:59 | HP.PTREVAL ---
Dr. Cheryl García, DO, It has been my pleasure to treat KEYON JOHN over the last 19 visits for LBP/FLEXABILITY. Please see the progress note below for an update on the physical therapy plan of care! Subjective: Patient thinks PT helping with Aquatic therapy goal is to be I with HEP. Patient walking is better ,but major improvement is flexablity Objective/Function: POSTURE: MILD FORWARD POSTURE. GAIT: RECIPROCAL PATTERN. MMT;QUADS/HAMS/HIP/ANKLE 4/5. LUMBAR ROM FLEXION MIN LOSS,EXTENSION MIN/MOD LOSS. FLEXABILITY: HAMS MILD TIGHT Plan Plan: CONT WITH POC 2XWK FOR 4WEEKS. PT INTERVENTIONS AQUATIC THERAPY MORE AGGRESSIV E LUMBAR ROM,DLS,POSTURAL EX'S ,BLE FLEXABILITY, Goals Goal 1:: i with Aquatic Therapy program and land based program . Goal Time Frame: 4-6 Weeks Goal Progress: Goal Met Goal 2:: Patient to decrease LBP by 70 % or > to improve function .(NEW GOAL) Goal Time Frame: 4-6 Weeks Goal 3:: Patient to improve lumbar ROM to improve function of recovery Goal Time Frame: 4-6 Weeks Goal Progress: Progressing Goal 4:: Patient to improve back owestry score by 5 points or > improve QOL. Goal Time Frame: 4-6 Weeks Goal Progress: Progressing Goal 5:: Patient improve LE flexability for function to put on shoes. Goal Time Frame: 4-6 Weeks Goal Progress: Progressing Anticipated Interventions Patient/Client Instruction: Educate patient on: Condition, Plan of Care For the Purpose of:: To decrease pain, To increase ROM, To improve muscle performance and motor function, To improve ability to perform ADL's, To increase tolerance to activity/condition/position, To improve ability of physical actions for home/community/work/leisure, To improve health of tissue, To decrease soft tissue restriction, To increase flexibility/ROM Therapeutic Exercise to Include: Strength training, Body mechanics, Postural training, Flexibilty training, In an aquatic setting, Active ROM, Dynamic Lumbar Stabilization Comment: BLE For the Purpose of:: To decrease pain, To increase ROM, To improve muscle performance and motor function, To improve ability to perform ADL's, To improve performance and independence with ADL's, To improve ability of physical actions for home/community/work/leisure, To improve health of tissue, To decrease soft tissue restriction, To increase flexibility/ROM Please do not hesitate to contact me at [phone] by phone or if you have questions or concerns regarding this new plan of care! Sincerely, Alexei Tong, PT, Cert MDT, OCS
--- NOTE | 2021-06-11 16:56 | HP.PTDCSUM ---
It has been my pleasure to treat KEYON JOHN referred by Dr. Cheryl García DO, with the diagnosis of LBP/FLEXABILITY for a total of 24 visit(s). Discharge Date: 06/11/21 Please see the following information for a summary of their discharge status. Subjective: Doing well .. Bilateral Back Pain Intensity (Out of 10): 0 LLE Pain Intensity (Out of 10): 0 % Improvement: 50 Objective/Function: POSTURE:mild forward posture. GAIT: reciprocal pattern mild forward posture. LUMBAR ROM: felxion min/mod loss,extension min/mod loss. FLEXBLITY: HAMS MILd TIGHT. MMT: BLE 4/5 GROSSLY Goal 1:: i with Aquatic Therapy program and land based program . Goal Progress: Goal Met Goal 2:: Patient to decrease LBP by 70 % or > to improve function .(NEW GOAL) Goal Progress: Progressing Goal 3:: Patient to improve lumbar ROM to improve function of recovery Goal Progress: Progressing Goal 4:: Patient to improve back owestry score by 5 points or > improve QOL. Goal Progress: Goal Met Goal 5:: Patient improve LE flexability for function to put on shoes. Goal Progress: Goal Met Plan: D/C TO [facility] Discharge Comments: Aquatic ex's If there are questions or concerns regarding this patient's physical therapy, please feel free to call me at [phone]. Thank you for the referral of this patient. Sincerely, Alexei Tong, PT, Cert MDT, OCS
== END 2021-06-11 19:00 | disposition home or self-care (01) ==
LOC: PT 16:30
PROVIDERS: PCP Internal Medicine; Referring Provider Internal Medicine; Visit Provider Internal Medicine
DX: M54.5 Low back pain (principal)
CPT/HCPCS: 97110; 97113; 97162; 97530

== ENCOUNTER → 2021-06-17 13:34 | Outpatient (CLI) | payer MEDICARE, OTHER, SELFPAY ==
[2021-04-07 11:27] VITALS: BMI 41.3
--- NOTE | 2021-06-17 13:50 | RAD_ITS ---
STUDY: X-RAY - PELVIS AND RIGHT HIP REASON FOR EXAM: Male, 70 years old. HIP PAIN TECHNIQUE: 3 views of the pelvis and hip. COMPARISON: None. FINDINGS: There is a non-specific bowel gas pattern. There are multiple calcified phleboliths. Normal bilateral iliac wings, sacroiliac joints and visualized sacrum. Normal bilateral superior and inferior pubic rami. Normal pubic symphysis. Normal bilateral ischial tuberosities. Normal visualized femoral head. There is osteoarthritic spur formation of the acetabular rim. is severe articular joint space narrowing of the hip. The patient is status post left total hip replacement. Osteoarthritic changes of the right femoral head. RAD/HIP, UNI W/ Pelvis 2-3 Views IMPRESSION: Status post left total hip replacement. Marked degree of osteoarthritis involving the right hip joint. Electronically Signed: Leodan Chou MD at 22:40 EDT , Service support ,
== END ==
PROVIDERS: PCP Internal Medicine; Referring Provider Internal Medicine; Visit Provider Internal Medicine
DX: M25.552 Pain in left hip (principal)
CPT/HCPCS: 73502

== ENCOUNTER → 2021-07-04 08:16 | Outpatient (CLI) | payer MEDICARE, OTHER, SELFPAY ==
[2021-04-07 11:27] VITALS: BMI 41.3
--- NOTE | 2021-07-04 08:18 | US_ITS ---
STUDY: ABDOMINAL ULTRASOUND - RIGHT UPPER QUADRANT REASON FOR VISIT: Male, 71 years old FATTY LIVER TECHNIQUE: Ultrasound evaluation of the right upper quadrant was performed with real-time and static rivas-scale imaging. TECHNICAL QUALITY: Adequate. COMPARISON: Comparison is made with prior study dated 05/27/2020. FINDINGS: Liver: The liver is enlarged and measures 20.3 cm. There is increased echogenicity consistent with fatty infiltration. The bile ducts are within normal limits. There is hepatic color flow. The direction of portal flow is hepatopetal. There is no demonstrated mass lesion. Gallbladder: Normal distended gallbladder. The gallbladder wall measures 3 mm. There is a negative sonographic Hartman''s sign. There is no pericholecystic fluid. There are no gallstones. Common Bile Duct (C.B.D.): The common bile duct measures 5 mm. Pancreas: Normal size of the head, body and tail of the pancreas. There is increased echogenicity of the pancreas. There is no demonstrated pancreatic mass or cyst. Right Kidney: Normal size of the right kidney. The right kidney measures 13 cm x 6.3 cm x 5.2 cm. Normal renal cortex. The right cortex measures 2.2 cm. There is no demonstrated renal mass or cyst. There is no right hydronephrosis. US/Liver IMPRESSION: Hepatomegaly and fatty infiltration of the liver. Electronically Signed: Leodan Chou MD at 13:56 EDT , Service support ,
== END ==
PROVIDERS: PCP Internal Medicine; Referring Provider Internal Medicine; Visit Provider Internal Medicine
DX: K76.0 Fatty (change of) liver, not elsewhere classified (principal)
CPT/HCPCS: 76705

== ENCOUNTER → 2021-08-12 14:35 | Outpatient (CLI) | payer MEDICARE, OTHER, SELFPAY ==
[2021-08-12 15:39] LABS: PSA,Total - Annual Screen 1.15 ng/mL (0.00-4.00)
[2021-08-12 16:54] LABS: Bacteria 0 SEEN /hpf (None Seen); Mucous, Urine 0 SEEN /hpf (<or=2+); Red Blood Cells-Urine 0 SEEN /hpf (0-5); Squamous Epithelial Cells - UA 0 SEEN /hpf (0-5); White Blood Cells 0 SEEN /hpf (0-5)
[2021-08-12 17:07] LABS: Color, Urine Yellow (Yellow); Glucose, Dipstick Normal (Normal); Ketone-Dipstick Negative (Negative); Leukocyte Esterase-Dipstick Negative /ul (Negative); Nitrite-Dipstick Negative (Negative); Occult Blood-Urine 10 /ul (Negative); Protein-Dipstick Negative (Negative); Specific Gravity, Urine 1.005 (1.002-1.030); Urine Bilirubin Dipstick Negative (Negative); Urine Clarity Clear (Clear); Urine Urobilinogen Normal (Normal)
== END ==
PROVIDERS: PCP Internal Medicine; Visit Provider Nurse Practitioner Adult Health
DX: Z12.5 Encounter for screening for malignant neoplasm of prostate (principal); R31.21 Asymptomatic microscopic hematuria
CPT/HCPCS: 36415; 81001; 84153; G0103

== ENCOUNTER → 2021-11-04 08:35 | Outpatient (CLI) | payer MEDICARE, OTHER, SELFPAY ==
--- NOTE | 2021-11-04 08:38 | RDU_ITS ---
Reason For Study: Hypertension Right Renal Artery Left Renal Artery Right renal artery ostium Left renal artery ostium 129.1/38.5 138.9/35.2 RSV/EDV. PSV/EDV. Right renal artery proximal Left renal artery proximal PSV/EDV 162.2/37.8 PSV/EDV. 141.7/40.7 . Right renal artery mid 170/37.8 Left renal artery mid 172.3/58.5 PSV/EDV. PSV/EDV . Right renal artery distal Left renal artery distal 149.7/37.9 102.6/24.9 PSV/EDV. PSV/EDV. Right RAR 2.29. Left RAR 2.32. Right Renal Parenchyma Left Renal Parenchyma Upper Pole Medula 26.2/6.4 PSV/EDV. Left upper pole medulla 28.8/11 Right upper pole medulla EDR 0.24 . PSV/EDV . Right upper pole medulla R.I. Left upper pole medulla EDR 0.38 . 0.76 . Left upper pole medulla R.I. 0.62 . Upper [place] Cortx 21.8/5.8 PSV/EDV. UP Cortex 20.8/6.1 PSV/EDV. Right upper pole cortex EDR 0.27 . Left upper pole cortex EDR 0.29 . Right upper pole cortex R.I. 0.73 . Left upper pole cortex R.I. 0.71 . Right lower Pole medulla 27.8/7.5 Left lower Pole medulla 29.4/9.8 PSV/EDV . PSV/EDV . Right lower pole medulla EDR 0.27 . Left lower pole medulla EDR 0.33 . Right lower pole medulla R.I. Left lower pole medulla R.I. 0.67 . 0.73 . Lower Pole Cortx 19.6/6.7 PSV/EDV. Lower Pole Cortex 17.4/4.7 PSV/EDV. Left lower pole cortex EDR 0.34 . Right lower pole cortex EDR 0.27 . Left lower pole cortex R.I. 0.66 . Right lower pole cortex R.I. 0.73 . Left Renal Hilar Right Renal Hilar LT Hilar avg 82.8/15.4 PSV/EDV . Right Hilar avg 82.4/15 PSV/EDV. Left hilar acceleration time 50 Right hilar acceleration time 50 m/sec. m/sec. Left Renal Dimensions Right Renal Dimensions Left kidney size 11.68 cm . Right kidney size 11.10 cm . Left cortical dimension 1.74 cm . Right cortical dimension 1.77 cm . Aorta Proximal abdominal aorta 2.45 x 2.47 cm . Proximal abdominal aorta peak systolic velocity is 74.2 cm/sec . Distal abdominal aorta 2.08 x 2.10 cm . Distal abdominal aorta peak systolic velocity is 96.1 cm/sec . VL/Renal Artery Duplex Ultrasound Interpretation Summary Maximal aortic dimensions proximally at 2.45 x 2.47 cm in diameter Normal bilateral renal artery to aortic ratios Less than 60% stenosis bilateral renal arteries Maintained right renal length of 11.1 cm Maintained left renal length of 11.68 cm Ordering Physician: Cheryl García Referring Physician: Cheryl García Performed By: Parvin Crowell RVT
== END ==
PROVIDERS: PCP Internal Medicine; Referring Provider Internal Medicine; Visit Provider Internal Medicine
DX: I10 Essential (primary) hypertension (principal)
CPT/HCPCS: 93975

== ENCOUNTER 2021-11-28 13:30 | Outpatient (RCR) | payer MEDICARE, OTHER, SELFPAY ==
--- NOTE | 2021-10-24 11:41 | HP.PTEVAL_ITS ---
Patient's Visit Information KEYON JOHN is a 71 year old M referred to Physical Therapy by Toni Giang PA-C with a diagnosis of UNILATERAL PRIMARY OSTEOARTHRITIS ,RIGHT HIP. Date of Evaluation: 10/24/21 Physical Therapist: Alexei Tong PT, Cert MDT, OCS - Visit Plan Frequency: 2-3x /Week Duration: 4-6 Weeks Plan: S/P ANTERIOR APROACH THR. PT INTERVENTION GAIT TRAINING,BALANCE TRAINING, ROM,STRENGTHNING HIP/KNEE ,FUNCTIONAL STRENGTHENING AND NUSTEP - Subjective This patient presents to physical therapy with Right THR . Patient has had severe pain in right found to have severe DJD right thus underwent S/P THR right anterior approach on 10/21/[address] [facility] done by DR Hogan . Patient D/C next day with FWW with WBAT. Patient elevated toilet seat . Lives in [facility] 2 steps . Patient has difficulty with ADL's assist with showers ,and dressing LE . Patient friend assist with these tasks and cooking. Denies paresthesia/tingling. Unable to lay in bed ,sleeps in [place]. MED hydrocodone for pain 2 q 6 hrs. RTD in 2weeks. PMH: left THR ,right TKR,LUMBAR SURGERY. Patient recalls hip precautions. Patient condition affects ADLS, gait and function. SOCIAL: girlfriend. VOCATION: retired - Pain Right Hip Pain Intensity (Out of 10): 7 Pain Intensity Range: 10 - Objective POSTURE: mild forward posture. EDEMA: 1+ hip. GAIT: ambulated with fww WBAT slow gurvinder decrease stance time RLE MOD I. TRANSFERS : SIT-STAND MOD I. BED MOBILITY: sit-supine mod assist RLE ,max assist with supine-sit. BALANCE: fair with fww. AROM: hip flexion 45 degrees, abduction 25 degrees, knee extension 10 degrees from 0,knee flexion 100 degrees. MMT: 0#,quads 21,4#,hamstrings 16.3#, hip extension 0 degrees ,ankle 4/5, - Balance/Special Test Scores Lower Extremity Functional Score: 7 WOMAC Total Score: 72 WOMAC Percentatge: 21.7400 - Goals Goal 1:: I with HEP for THR Goal Time Frame: 6-8 Weeks Goal 2:: Patient to normalize gait with cane community distances. Goal Time Frame: 6-8 Weeks Goal 3:: Patient increase WOMAC score by 10 points to improve function and gait Goal Time Frame: 6-8 Weeks Goal 4:: Patient to increase strength hip flexion 25#,quads/hams 55# to improve gait Goal Time Frame: 6-8 Weeks Goal 5:: Patient to demonstrate improvement 70 % with decrease pain function. Goal Time Frame: 6-8 Weeks Goal 6:: Improve LFES score by 10 points to improve QOL/gait Goal Time Frame: 6-8 Weeks - Rehabilitation Potential Physical Therapy Diagnosis: This patient underwent s/p THR with impairments with pain ROM, strength ,gait, stairs and balance thus benefit from skilled PT Rehabilitation Potential: Good - Anticipated Interventions Patient/Client Instruction: Educate patient on: Condition, Plan of Care For the Purpose of:: To decrease pain, To increase ROM, To improve muscle performance and motor function, To improve ability to perform ADL's, To increase tolerance to activity/condition/position, To improve performance and independence with ADL's, To improve ability of physical actions for home/community/work/leisure, To improve health of tissue, To decrease soft tissue restriction, To increase flexibility/ROM Therapeutic Exercise to Include: Strength training, Endurance training, Balance training, Coordination, Flexibilty training, Gait and locomotor training, Active ROM For the Purpose of:: To decrease pain, To increase ROM, To improve muscle performance and motor function, To improve ability to perform ADL's, To increase tolerance to activity/condition/position, To improve ability of physical actions for home/community/work/leisure, To improve gait and locomotor functions, To decrease soft tissue restriction, To increase flexibility/ROM, To assume or resume ADL's, To reduce risk of recurrence, To prevent re-injury Thank you for the opportunity to evaluate your patient. For Medicare and Medicare HMO plans, please review the plan of care and approve it. It will need to be FAXED BACK to us at [phone] for Medicare purposes. For Medicare only, by signing this I certify the plan of care. Please let me know if there are questions or concerns regarding this plan of c are. Physician Signature: Date:
--- NOTE | 2022-02-26 14:46 | HP.PTDCSUM ---
It has been my pleasure to treat KEYON JOHN referred by Toni Giang PA-C, with the diagnosis of UNILATERAL PRIMARY OSTEOARTHRITIS ,RIGHT HIP for a total of 9 visit(s). Discharge Date: Please see the following information for a summary of their discharge status. Subjective: Patient doing better Right Hip Pain Intensity (Out of 10): 0 % Improvement: 90 Objective/Function: Zeb tx well with strengthening and ambulating with improve gait pattern with stance time Goal 1:: I with HEP for THR Goal 2:: Patient to normalize gait with cane community distances. Goal 3:: Patient increase WOMAC score by 10 points to improve function and gait Goal 4:: Patient to increase strength hip flexion 25#,quads/hams 55# to improve gait Goal 5:: Patient to demonstrate improvement 70 % with decrease pain function. Goal 6:: Improve LFES score by 10 points to improve QOL/gait Plan: S/P ANTERIOR APROACH THR. PT INTERVENTION GAIT TRAINING,BALANCE TRAINING, ROM,STRENGTHNING HIP/KNEE ,FUNCTIONAL STRENGTHENING AND NUSTEP If there are questions or concerns regarding this patient's physical therapy, please feel free to call me at [phone]. Thank you for the referral of this patient. Sincerely, Alexei Tong, PT, Cert MDT, OCS Balance/Gait/Functional tests - Balance/Special Test Scores Lower Extremity Functional Score: 49 Tug Test: <20 sec.=mostly independent WOMAC Total Score: 72 WOMAC Percentage: 21.7400
== END 2021-11-28 19:00 | disposition home or self-care (01) ==
LOC: PT 13:30
PROVIDERS: PCP Internal Medicine; Referring Provider Physician Assistant Surgical; Visit Provider Physician Assistant Surgical
DX: M16.11 Unilateral primary osteoarthritis, right hip (principal)
CPT/HCPCS: 97110; 97162

== ENCOUNTER 2022-02-18 13:01 | Outpatient (CLI) | payer MEDICARE, OTHER, SELFPAY ==
--- NOTE | 2022-02-18 13:03 | CDU_ITS ---
Reason For Study: Carotid stenosis Rt. Velocities/BP Lt. Velocities/BP Prox CCA 115.1/13.4 cm/sec. Prox CCA 106.5/17 cm/sec. Mid CCA 90.4/16 cm/sec. Mid CCA 106.5/18.8 cm/sec. Dist CCA 86.5/17.3 cm/sec. Dist CCA 85.1/13.9 cm/sec. Prox ICA 71.6/15.1 cm/sec. Prox ICA 66.7/11.4 cm/sec. Mid ICA 66.7/13.9 cm/sec. Mid ICA 60.5/13.9 cm/sec. Dist ICA 58.1/12.6 cm/sec. Dist ICA 70.4/13.9 cm/sec. Rt. ICA/CCA = 0.79. Lt. ICA/CCA = 0.66. Prox ECA 165.2/13.8 cm/sec. Prox ECA 119.3/11.5 cm/sec. Rt. Vert. 50.7 cm/sec. Lt. Vert. 44.3/11.3 cm/sec. Right Extracranial There is homogeneous, smooth atherosclerotic plaque noted in the right common carotid artery. There is heterogeneous, irregular atherosclerotic plaque noted in the right internal carotid artery. There is homogeneous, smooth atherosclerotic plaque noted in the right external carotid artery. Antegrade flow is noted in the right vertebral artery. Left Extracranial There is homogeneous, smooth atherosclerotic plaque noted in the left common carotid artery. There is homogeneous, smooth atherosclerotic plaque noted in the left internal carotid artery. There is intimal thickening but no significant atherosclerotic plaque noted in the left external carotid artery. Antegrade flow is noted in the left vertebral artery. Procedure Carotid Duplex 51017. This is a Carotid Duplex examination using B-mode, color flow and specral Doppler. Exam performed in department. VL/Carotid Duplex Ultrasound Interpretation Summary Minimal calcific plaque in the proximal right internal carotid artery with less than 50% stenosis Less than 50% stenosis right external carotid artery Smooth plaque at the proximal left internal carotid artery with less than 50% s tenosis Less than 50% stenosis left external carotid artery Patent and antegrade vertebral arteries bilaterally No change from 02/12/21 Ordering Physician: Cheryl García Referring Physician: Cheryl García Performed By: Parvin Crowell RVT
== END 2022-02-18 23:59 | disposition home or self-care (01) ==
LOC: CVS 13:02
PROVIDERS: PCP Internal Medicine; Referring Provider Internal Medicine; Visit Provider Internal Medicine
DX: I65.23 Occlusion and stenosis of bilateral carotid arteries (principal)
CPT/HCPCS: 93880

== ENCOUNTER → 2022-04-29 | Outpatient (CLI) | payer MEDICARE, OTHER, SELFPAY ==
--- NOTE | 2022-04-29 08:29 | STRESSREP ---
Stress Test Report Date: 04-29-2022 Procedure: Pharmacologic stress nuclear imaging study Indications: Atrial fibrillation; PVCs; hyperlipidemia; hypertension; diabetes mellitus; JEWEL Consent: Per the patient Procedure: The patient underwent pharmacologic (Regadenoson 0.4mg ) evaluation with a peak heart rate of 77 beats per minute (51%predicted maximal heart rate) and a peak blood pressure of 154/80 mmHg. The baseline ECG demonstrated sinus rhythm. The peak pharmacologic ECG demonstrated no obvious ECG changes. There were no cardiac dysrhythmias pretest, during pharmacologic infusion, or recovery. There was no complaint of chest discomfort during pharmacologic infusion or recovery. The examination was discontinued secondary to completion of protocol. Impression: 1. Pharmacologic (Regadenoson) evaluation 2. Peak pharmacologic ECG with no obvious ECG changes. 3. There were no cardiac dysrhythmias pretest, during pharmacologic infusion, or recovery. 4. Nuclear images pending Myocardial perfusion imaging study: Technique: The patient was injected with 14.8 millicuries of technetium 99m Cardiolite and subsequently rest SPECT Cardiolite nuclear imaging was obtained in the horizontal long, vertical long, and short axis views. The patient underwent pharmacologic (Regadenoson) evaluation with a peak heart rate of 77 beats per minute (51% percent predicted maximal heart rate) and a peak blood pressure of 154/80 mmHg. The patient was injected with 44.9 millicuries of technetium 99m Cardiolite and subsequently stress SPECT Cardiolite nuclear imaging was obtained in the horizontal long, vertical long, and short axis views. A gated Cardiolite study at peak stress was obtained. Interpretation: Rest and stress SPECT Cardiolite nuclear imaging status post realignment, normalization, and attenuation correction demonstrate the appearance of body motion during image acquisition and otherwise the appearance of relative uniform tracer uptake and myocardial perfusion appearing within normal limits. There is end systolic thickening and brightening. The gated Cardiolite study demonstrates myocardial thickening and inward wall motion. The reported LVEF is 70%. Impression: 1. Rest and stress SPECT Cardiolite nuclear imaging demonstrate relative uniform tracer uptake and myocardial perfusion appearing within normal limits. 2. The gated Cardiolite study reports an LVEF of 70%. This note was generated with [employer] software. It may contain incorrect words, spelling, and punctuation that were not noted in checking the note before signing.
== END | disposition home or self-care (01) ==
LOC: CVS 06:13
PROVIDERS: PCP Internal Medicine; Referring Provider Physician Assistant Medical; Visit Provider Physician Assistant Medical
DX: I48.91 Unspecified atrial fibrillation (principal); R94.31 Abnormal electrocardiogram [ECG] [EKG]
CPT/HCPCS: 78452; 93017; A9500; A4216; J2785

== ENCOUNTER → 2022-06-05 | Outpatient (CLI) | payer MEDICARE, OTHER, SELFPAY ==
--- NOTE | 2022-06-05 10:31 | US_ITS ---
STUDY: ABDOMINAL ULTRASOUND - RIGHT UPPER QUADRANT REASON FOR VISIT: Male, 71 years old FATTY LIVER TECHNIQUE: Ultrasound evaluation of the right upper quadrant was performed with real-time and static rivas-scale imaging. TECHNICAL QUALITY: Limited. Examination limited due to obesity. COMPARISON: Comparison is made with prior study dated 07/04/2021. FINDINGS: Liver: The liver is enlarged and measures 19.3 cm. There is increased echogenicity consistent with fatty infiltration. The bile ducts are within normal limits. There is hepatic color flow. The direction of portal flow is hepatopetal. There is no demonstrated mass lesion. Gallbladder: Normal distended gallbladder. The gallbladder wall measures 2.4 mm. There is a negative sonographic Hartman''s sign. There is no pericholecystic fluid. There are no gallstones. Common Bile Duct (C.B.D.): The common bile duct measures 2.8 mm. Pancreas: Normal size of the head, body and tail of the pancreas. There is increased echogenicity of the pancreas. There is no demonstrated pancreatic mass or cyst. Right Kidney: Normal size of the right kidney. The right kidney measures 12.9 cm x 5.7 cm x 5.2 cm. Normal renal cortex. The right cortex measures 1.4 cm. There is no demonstrated renal mass or cyst. There is no right hydronephrosis. US/Liver IMPRESSION: Hepatomegaly and diffuse fatty infiltration of the liver. Electronically Signed: Leodan Chou MD at 12:56 EDT ,
== END | disposition home or self-care (01) ==
LOC: US 10:30
PROVIDERS: PCP Internal Medicine; Referring Provider Internal Medicine; Visit Provider Internal Medicine
DX: K76.0 Fatty (change of) liver, not elsewhere classified (principal)
CPT/HCPCS: 76705

== ENCOUNTER 2022-09-09 13:00 | Outpatient (RCR) | payer MEDICARE, OTHER, SELFPAY | END 2022-09-21 23:59 | LOC: DC 13:00 | PROVIDERS: PCP Internal Medicine; Referring Provider Internal Medicine; Visit Provider Internal Medicine | DX: E11.9 Type 2 diabetes mellitus without complications (principal) | CPT/HCPCS: G0108 ==

== ENCOUNTER → 2022-10-27 | Outpatient (CLI) | payer MEDICARE, OTHER, SELFPAY ==
--- NOTE | 2022-10-27 07:58 | US_ITS ---
STUDY: ABDOMINAL ULTRASOUND - ELASTOGRAPHY REASON FOR VISIT: Male, 72 years old. Fatty infiltration of the liver. TECHNIQUE: Liver stiffness measurements were obtained on a Loopback RS 85 ultrasound machine using a CA 1-7 probe following the SRU guidelines. 3 measurements were obtained using a 2-D-SWE method. The IQR/M was 17% suggesting a quality data set. TECHNICAL QUALITY: Adequate. COMPARISON: Comparison is made with prior study done earlier in the day. FINDINGS: Liver: Hepatomegaly. Fatty infiltration of the liver. Median liver stiffness measured 19 kPa. US/Elastography Parenchyma/Organ IMPRESSION: Liver stiffness measures 19 kPa compatible with F3-F4 (Moderate to severe liver fibrosis) Metavir score. Electronically Signed: Leodan Chou MD at 15:51 EST ,
--- NOTE | 2022-10-27 07:58 | US_ITS ---
STUDY: ABDOMINAL ULTRASOUND - RIGHT UPPER QUADRANT REASON FOR VISIT: Male, 72 years old fatty liver TECHNIQUE: Ultrasound evaluation of the right upper quadrant was performed with real-time and static rivas-scale imaging. TECHNICAL QUALITY: Limited. Examination limited due to a combination of factors including obesity and bowel gas. COMPARISON: Comparison is made with prior study dated 06/05/2022. FINDINGS: Liver: The liver is enlarged and measures 19 cm. There is increased echogenicity consistent with fatty infiltration. The bile ducts are within normal limits. There is hepatic color flow. The direction of portal flow is hepatopetal. There is no demonstrated mass lesion. Gallbladder: Normal distended gallbladder. The gallbladder wall measures 1.8 mm. There is a negative sonographic Hartman''s sign. There is no pericholecystic fluid. There are no gallstones. Common Bile Duct (C.B.D.): The common bile duct measures 3.8 mm. Pancreas: There is nonvisualization of the pancreas due to overlying bowel gas. Right Kidney: Normal size of the right kidney. The right kidney measures 12.1 cm x 5.7 cm x 5.7 cm. Normal renal cortex. The right cortex measures 1.6 cm. There is no demonstrated renal mass or cyst. There is no right hydronephrosis. US/Abdomen Limited IMPRESSION: Mild hepatomegaly and fatty infiltration of the liver. Electronically Signed: Leodan Chou MD at 15:42 EST ,
== END | disposition home or self-care (01) ==
LOC: US 07:56
PROVIDERS: PCP Internal Medicine; Referring Provider Internal Medicine; Visit Provider Internal Medicine
DX: K76.0 Fatty (change of) liver, not elsewhere classified (principal)
CPT/HCPCS: 76705; 76981

== ENCOUNTER 2022-11-02 09:00 | Outpatient (RCR) | payer MEDICARE, OTHER, SELFPAY | END 2022-11-21 23:59 | LOC: DC 09:00 | PROVIDERS: PCP Internal Medicine; Referring Provider Internal Medicine; Visit Provider Internal Medicine | DX: E11.9 Type 2 diabetes mellitus without complications (principal) | CPT/HCPCS: 97802; G0108 ==

== ENCOUNTER 2022-12-22 13:30 | Outpatient (RCR) | payer MEDICARE, OTHER, SELFPAY | END 2022-12-22 23:59 | LOC: DC 13:30 | PROVIDERS: PCP Internal Medicine; Referring Provider Internal Medicine; Visit Provider Internal Medicine | DX: E11.9 Type 2 diabetes mellitus without complications (principal) | CPT/HCPCS: 97803; G0109 ==

== ENCOUNTER 2022-12-24 10:02 | Outpatient (RCR) | payer MEDICARE, OTHER, SELFPAY | END 2023-01-19 23:59 | LOC: DC 10:02 | PROVIDERS: PCP Internal Medicine; Referring Provider Internal Medicine; Visit Provider Internal Medicine | DX: E11.9 Type 2 diabetes mellitus without complications (principal) | CPT/HCPCS: G0109 ==

== ENCOUNTER → 2023-01-27 | Outpatient (CLI) | payer MEDICARE, OTHER, SELFPAY ==
--- NOTE | 2023-01-27 12:54 | CDU_ITS ---
Reason For Study: Bilateral carotid stenosis Rt. Velocities/BP Lt. Velocities/BP Prox CCA 75.9/10.7 cm/sec. Prox CCA 91.6/10.2 cm/sec. Mid CCA 68.3/11.6 cm/sec. Mid CCA 64.1/10.2 cm/sec. Dist CCA 73/11.6 cm/sec. Dist CCA 74/14.6 cm/sec. Prox ICA 61.8/7.7 cm/sec. Prox ICA 53.1/10.2 cm/sec. Mid ICA 63/11.4 cm/sec. Mid ICA 57.5/11.3 cm/sec. Dist ICA 67.9/12.6 cm/sec. Dist ICA 57.5/13.5 cm/sec. Rt. ICA/CCA = 0.93. Lt. ICA/CCA = 0.78. Prox ECA 137.5/11.5 cm/sec. Prox ECA 117.4/9.7 cm/sec. Rt. Vert. 50/3.8 cm/sec. Lt. Vert. 44.7/13.5 cm/sec. Right Extracranial There is homogeneous, smooth atherosclerotic plaque noted in the right common carotid artery. There is heterogeneous, irregular atherosclerotic plaque noted in the right internal carotid artery. There is homogeneous, smooth atherosclerotic plaque noted in the right external carotid artery. Antegrade flow is noted in the right vertebral artery. Left Extracranial There is homogeneous, smooth atherosclerotic plaque noted in the left common carotid artery. There is homogeneous, smooth atherosclerotic plaque noted in the left internal carotid artery. There is intimal thickening but no significant atherosclerotic plaque noted in the left external carotid artery. Antegrade flow is noted in the left vertebral artery. Procedure Carotid Duplex 85501. This is a Carotid Duplex examination using B-mode, color flow and specral Doppler. Exam performed in department. VL/Carotid Duplex Ultrasound Interpretation Summary Minimal irregular plaque at the proximal right internal carotid artery with les s than 50% stenosis Less than 50% stenosis right external carotid artery Minimal smooth plaque at the proximal left internal carotid artery with less th an 50% stenosis Less than 50% stenosis left external carotid artery Patent antegrade vertebral arteries bilaterally No change from the previous examination of February 18, 2022 Ordering Physician: Cheryl García Referring Physician: Cheryl García Performed By: Parvin Crowell RVT
== END | disposition home or self-care (01) ==
LOC: CVS 12:53
PROVIDERS: PCP Internal Medicine; Referring Provider Internal Medicine; Visit Provider Internal Medicine
DX: I65.23 Occlusion and stenosis of bilateral carotid arteries (principal)
CPT/HCPCS: 93880

== ENCOUNTER 2023-02-16 11:30 | Outpatient (RCR) | payer MEDICARE, OTHER, SELFPAY | END 2023-02-19 23:59 | LOC: DC 11:30 | PROVIDERS: PCP Internal Medicine; Referring Provider Internal Medicine; Visit Provider Internal Medicine | DX: E11.9 Type 2 diabetes mellitus without complications (principal); Z85.72 Personal history of non-Hodgkin lymphomas | CPT/HCPCS: 36415; 80053; 83615; 85025; 97803 ==

== ENCOUNTER 2023-03-16 11:34 | Outpatient (RCR) | payer MEDICARE, OTHER, SELFPAY | END 2023-03-21 23:59 | LOC: DC 11:34 | PROVIDERS: PCP Internal Medicine; Referring Provider Internal Medicine; Visit Provider Internal Medicine | DX: E11.9 Type 2 diabetes mellitus without complications (principal) | CPT/HCPCS: 97803 ==

== ENCOUNTER 2023-03-31 14:38 | Outpatient (RCR) | payer MEDICARE, OTHER, SELFPAY | END 2023-04-21 23:59 | LOC: DC 14:38 | PROVIDERS: PCP Internal Medicine; Referring Provider Internal Medicine; Visit Provider Internal Medicine | DX: E11.9 Type 2 diabetes mellitus without complications (principal) | CPT/HCPCS: G0109 ==

== ENCOUNTER 2023-04-08 07:49 | Outpatient (CLI) | payer MEDICARE, OTHER, SELFPAY ==
--- NOTE | 2023-04-07 | LIV_PTH ---
PATIENT: KEYON JOHN LOC: [place] U#:[id number] AGE/SX: 72/M ROOM: RE04/08/[address]: MELITON Spicer : 1950 BED: DIS: 04/08/2023 SPEC #: [id number] RECD: 04/08/23 09:29 STATUS: PAULINE REMesfin #: [id number] SAMI: 04/07/23 00:[address]: Barby Knight NP DEPT: SURGICAL PATHOLOGY RECD BY: Akshat Guerrero ENTERED: 04/08/23 11:58 SP TYPE: LIVER RES OTHR DR: Dr. Cheryl García DO Tissues: Liver, NOS Procedures: PAS with Diastase (control) Trichrome (control) Special Stain Group II PAS Stain (control) Surgery Specimen Level V Retic (control) Iron Stain (control) HEADER OPERATION: CT-guided liver biopsy PRE-OP DIAGNOSIS: Hepatic fibrosis TISSUE SUBMITTED: Liver 18-gauge core x3 MICROSCOPIC DIAGNOSIS Liver, CT-guided core biopsy: Liver parenchymal tissue with extensive macrovesicular steatosis. Increased portal and periportal fibrosis and focal bridging fibrosis. Negative for obvious cirrhosis. See microscopic description and comment. SJ:josseline 04/09/2023 COMMENT Correlation with clinical, radiologic findings and appropriate follow up are necessary. MICROSCOPIC DESCRIPTION Slides are reviewed. The specimen shows liver parenchymal tissue. The hepatocytes show extensive macro- and microvesicular steatosis. Hepatocytes also show reactive changes and glycogenation of nuclei. Portal area shows minimal chronic inflammation. Trichrome stain shows increased portal and periportal fibrosis and focal bridging fibrosis. Obvious erosion is not seen. Reticulin stain also highlights increased fibrosis. Iron stain shows absent iron. PAS stain with and without diastase do not show any abnormal accumulation of protein. All stains are performed with appropriate matched controls. GROSS DESCRIPTION Received in fixative is one container labeled with the patient's name and designated liver biopsy. The specimen consists of three elongated fragments of jefferson soft tissue each measuring 2.0 cm in length and 0.1 cm in diameter. The specimen is totally submitted in one cassette. / COLE:josseline 04/08/2023 TC:5 CPT: 56888, 74522 x5
[2023-04-08] VITALS (9 sets, daily range): BP systolic 118–144; BP diastolic 65–82; PULSE 60–64; RESP 13–20; TEMP 36.3; O2SAT 92–99; BMI 39.9
--- NOTE | 2023-04-08 08:02 | CT_ITS ---
PROCEDURE: CT DIRECTED CORE LIVER BIOPSY INDICATION: Male, 72 years old. Liver fibrosis 19 kpa PHYSICIAN: Dr. José Antonio Mendoza CONSENT: Written informed consent was obtained having explained the risks, benefits and alternatives in detail with the patient who accepted the risks and agreed to proceed. Laboratory review and clinical assessment was performed. CONSCIOUS SEDATION PROTOCOL: The Drugs used were: 2 mg Versed, IV., and 50 mcg Fentanyl, IV. The sedation time was: 23 minutes. Conscious sedation was started at 8:57 AM and terminated at 9:20 AM. The conscious sedation protocol was independently monitored. RADIATION DOSAGE (If Supplied By Facility): CTDIvol = ( 23 ) mGy, DLP = ( 706.95 ) mGycm Individualized dose optimization techniques were used for this CT. TECHNIQUE: Using CT image guidance with image documentation, a suitable location in the left lobe of the liver was identified. Using an inferior approach, puncture of the liver was uneventful with an 18-gauge core needle system. 3, 18-gauge core samples were obtained, and submitted in formalin to the pathologist for further assessment. Followup CT scan revealed no distinct sequelae. CT/Biopsy/Inj or Needle Placement IMPRESSION: 1. CT directed core needle biopsy of the liver, using CT image guidance with image documentation as described. 2. Conscious Sedation protocol utilized with independent monitoring. Electronically Signed: Leodan Chou MD at 11:09 EDT ,
[2023-04-08 08:05] LABS: Platelet Count 248 K/mm3 (150-450)
[2023-04-08 08:35] LABS: Partial Thromboplast Time 30.1 Seconds (24.1-36.2); Prothrombin Time (Protime)PT. 13.6 SECONDS (11.7-14.9)
[2023-04-08] MEDS: Midazolam 2 MG/2 ML Syringe IV (08:57)
[2023-04-08] MEDS: fentaNYL 100 MCG/2 ML Ampul IV (08:58)
[2023-04-08] MEDS: Lidocaine 2% (20 ml mdv) 20 ML Vial INFILT (09:30)
== END 2023-04-08 23:59 | disposition home or self-care (01) ==
PROVIDERS: Radiology Diagnostic Radiology; PCP Internal Medicine; Referring Provider Nurse Practitioner Adult Health; Visit Provider Nurse Practitioner Adult Health
DX: K74.00 Hepatic fibrosis, unspecified (principal)
CPT/HCPCS: 47000; 36415; 77012; 85049; 85610; 85730; 88307; 88313; 99156; J7050; A4216

== ENCOUNTER 2023-06-14 17:30 | Outpatient (RCR) | payer SELFPAY | END 2023-06-21 23:59 | LOC: NS 17:30 | PROVIDERS: PCP Internal Medicine | DX: Z71.3 Dietary counseling and surveillance (principal) ==

== ENCOUNTER → 2023-07-30 | Outpatient (CLI) | payer MEDICARE, OTHER, SELFPAY ==
--- NOTE | 2023-07-30 08:17 | NM_ITS ---
CLINICAL: 73-year-old male with history of rib pain. LIMITED PLANAR 99m Tc MDP RADIONUCLIDE BONE SCINTIGRAPHY COMPARISON: None available FINDINGS: Following the intravenous administration of 28.0 mCi of 99m Tc MDP, limited bone acquisitions of the anterior and posterior thorax-ribs, both anterior and posterior oblique acquisitions reveal: 1. Increased radiopharmaceutical concentration is defined in the sternoclavicular compartment of the left shoulder, lower cervical spine posteriorly on the right, heterogeneously defined in the thoracic spine to the left and right of the midline. 2. The remaining visualized skeletal structures are scintigraphically unremarkable. The cephalad portion of both renal units is demonstrated. There is calcification of the costochondral junction. NM/Bone Scan Limited Area IMPRESSION: 1. The increase in radiopharmaceutical defined in the left shoulder, cervical and thoracic spine is most consistent with degenerative arthrosis. 2. Meticulous attention paid to the bilateral hemithorax reveals no evidence of trauma-fracture on the present examination. Electronically Signed: Rahul Eden DO at 22:39 EDT ,
== END | disposition home or self-care (01) ==
LOC: NM 08:16
PROVIDERS: PCP Internal Medicine; Referring Provider Internal Medicine; Visit Provider Internal Medicine
DX: R07.81 Pleurodynia (principal)
CPT/HCPCS: 78300; A9503

== ENCOUNTER → 2023-08-19 | Outpatient (CLI) | payer MEDICARE, OTHER, SELFPAY ==
[2023-08-19 14:49] LABS: PSA,Total - Annual Screen 1.62 ng/mL (0.00-4.00)
== END | disposition home or self-care (01) ==
LOC: LAB 13:45
PROVIDERS: PCP Internal Medicine; Referring Provider Nurse Practitioner; Visit Provider Nurse Practitioner
DX: Z12.5 Encounter for screening for malignant neoplasm of prostate (principal)
CPT/HCPCS: 36415; 84153; G0103

== ENCOUNTER 2023-12-29 11:30 | Outpatient (RCR) | payer MEDICARE, OTHER, SELFPAY ==
--- NOTE | 2023-12-22 17:41 | HP.PTEVAL_ITS ---
Patient's Visit Information Visit Information Visit Information: KEYON JOHN is a 73 year old M referred to Physical Therapy by Dr. Cheryl García DO with a diagnosis of CERVICAL RADICULOPATHY. Date of Evaluation: 12/22/23 Physical Therapist: Alexei Tong, PT, Cert MDT, OCS Visit Plan Frequency: 3x /Week Duration: 3 Weeks Plan: PT INTERVENTIONS CERVICAL ROM,POSTURAL EX'S , STRENGTHENING ,MANUAL TECHNIQUE NEEDED, AND MODALTIES IF PAIN WORSENS Subjective Subjective: This 73 y/o male presents to physical therapy cervical radiculopathy . This patient has cervical pain left radiculopathy ~ 3weeks carrying tree down steps tripped . Patient developed severe neck pain for 3-4 days. Initially pain was sharp ,pain is dull ache in left arm. Pain progressively worse in left upper extremity. Patient seen and had x-rays - cervical. Return DR García tried prednisone got better but in the morning symptoms better. Aggravating factors worse in the morning gets better as day goes away. Alleviating factors rest movement in the morning. Denies paresthesia/tingling. Denies nausea/tinnitus. Pain in arm can affects sleeping. Sleeping on back and left side. Patient has no h/o neck pain. Patient pain affects QOL and function/housework tasks. Patient goals to decrease pain. SOCIAL: VOCATION: retired Pain Bilateral Neck: Pain Intensity (Out of 10): 0 Left Shoulder: Pain Intensity (Out of 10): 1 Objective Objective: POSTURE: mild forward posture ,head forward PALPATION: unremarkable NEURO: denies paresthesia/tingling , reflexes C5-6-7 2/3 PALAPTION: unremarkable AROM: flexion shoulder flexion /abduction 150 degrees no pain ,ER 90 degrees ,IR L1 MMT: GROSSLY 4/5 ,RTC 4/5 ,DELTOID 4-/5 CERVICAL ROM: flexion min loss ,extension mod loss ,lateral flexion/rotation min loss Special Tests C/S Radiculapathy - Left Upper limb tension test: Negative C/S Radiculapathy - Right Upper limb tension test: Negative C/S Radiculapathy - Left Spurlings: Negative C/S Radiculapathy - Right Spurlings: Negative C/S Radiculapathy - Left Cervical distraction: Negative C/S Radiculapathy - Right Cervical distraction: Negative C/S Radiculapathy - Left Relief test: Negative C/S Radiculapathy - Right Relief test: Negative C/S Radiculapathy - Valsalva: Negative Sharp Rob: Negative Vertebral Artery Test: Negative Alar Ligament Test: Negative Cervical Sitting: Protrusion - Mechanical Response: No effect Cervical Sitting: Protrusion - Symptoms During Testing: No effect Cervical Sitting: Protrusion - Symptoms After Testing: No effect Cervical Sitting: Retraction - Mechanical Response: No effect Cervical Sitting: Retraction - Symptoms During Testing: No effect Cervical Sitting: Retraction - Symptoms After Testing: No effect Cervical Sitting: Retraction-Extension - Mechanical Response: No effect Cerv Sitting: Retraction-Extension - Symptoms During Testing: No effect Cerv Sitting: Retraction-Extension - Symptoms After Testing: No effect Cervical Sitting: Sidebend Right - Mechanical Response: No effect Cervical Sitting: Sidebend Right - Symptoms During Testing: No effect Cervical Sitting: Sidebend Right - Symptoms After Testing: No effect Cervical Sitting: Sidebend Left - Mechanical Response: No effect Cervical Sitting: Sidebend Left - Symptoms During Testing: No effect Cervical Sitting: Sidebend Left - Symptoms After Testing: No effect Cervical Sitting: Rotation Right - Mechanical Response: No effect Cervical Sitting: Rotation Right - Symptoms During Testing: No effect Cervical Sitting: Rotation Right - Symptoms After Testing: No effect Cervical Sitting: Rotation Left - Mechanical Response: No effect Cervical Sitting: Rotation Left - Symptoms During Testing: No effect Cervical Sitting: Rotation Left - Symptoms After Testing: No effect Cervical Sitting: Flexion - Mechanical Response: No effect Cervical Sitting: Flexion - Symptoms During Testing: No effect Cervical Sitting: Flexion - Symptoms After Testing: No effect Balance/Special Test Scores Oswestry Neck Score: 13 Goals Goal 1:: Patient to be I with HEP Goal Time Frame: 4-6 Weeks Goal 2:: Patient to demonstrate 50% improvement with less pain and improved function without recurrent symptoms Goal Time Frame: 4-6 Weeks Goal 3:: Patient to improve cervical ROM for function of recovery for ADLS Goal Time Frame: 4-6 Weeks Goal 4:: Patient to improve neck oswestry score by 5 points to improve QOL and function Goal Time Frame: 4-6 Weeks Rehabilitation Potential Physical Therapy Diagnosis: Patient had a fall caused neck pain then increased in arm 4-5days prednisone helped pain is worse in night and intermittent throughout day ,pain in is worse positioning at night thus benefit from skilled PT. Rehabilitation Potential: Good Anticipated Interventions Patient/Client Instruction: Educate patient on: Condition and Plan of Care For the Purpose of:: To decrease pain, To increase ROM, To improve muscle performance and motor function, To improve ability to perform ADL's, To increase tolerance to activity/condition/position, To improve ability of physical actions for home/community/work/leisure, To improve health of tissue, To decrease soft tissue restriction, To increase flexibility/ROM, To assume or resume ADL's, To reduce risk of recurrence and To improve tolerance to ADL's Therapeutic Exercise to Include: Strength training, Postural training, Flexibilty training and Active ROM For the Purpose of:: To decrease pain, To increase ROM, To improve muscle performance and motor function, To increase tolerance to activity/condition/position, To improve ability of physical actions for home/community/work/leisure, To improve health of tissue, To decrease soft tissue restriction, To increase flexibility/ROM, To reduce risk of recurrence and To improve tolerance to ADL's Manual Therapy Techniques to Include: Mobilization Comment: CERVICAL TRACTION For the Purpose of:: To decrease pain, To increase ROM, To improve nutrient delivery to tissue, To increase oxygenation perfusion, To improve health of tissue and To decrease soft tissue restriction Text: Thank you for the opportunity to evaluate your patient. For Medicare and Medicare HMO plans, please review the plan of care and approve it. It will need to be FAXED BACK to us at [phone] for Medicare purposes. For Medicare only, by signing this I certify the plan of care. Please let me know if there are questions or concerns regarding this plan of care. Physician Signature: Da te:
--- NOTE | 2023-12-29 12:03 | HP.PTDCSUM ---
Discharge Summary D/C summary: It has been my pleasure to treat KEYON JOHN referred by Dr. Cheryl García DO, with the diagnosis of CERVICAL RADICULOPATHY for a total of 4 visit(s). Discharge Date: 12/29/23 Please see the following information for a summary of their discharge status. Subjective Subjective: Doing well .. No pain okay for d/c Pain Bilateral Neck: Pain Intensity (Out of 10): 0 Left Shoulder: Pain Intensity (Out of 10): 0 Overall Improvement % Improvement: 100 Objective Objective/Function: POSTURE: mild forward posture ,head forward PALPATION: unremarkable NEURO: denies paresthesia/tingling , reflexes C5-6-7 2/3 PALAPTION: unremarkable AROM: flexion shoulder flexion /abduction 150 degrees no pain ,ER 90 degrees ,IR L1 MMT: GROSSLY 4/5 ,RTC 4/5 ,DELTOID 4-/5 CERVICAL ROM: flexion min loss ,extension mod loss ,lateral flexion/rotation min loss Goals Goal 1:: Patient to be I with HEP Goal Progress: Goal Met Goal 2:: Patient to demonstrate 50% improvement with less pain and improved function without recurrent symptoms Goal Progress: Goal Met Goal 3:: Patient to improve cervical ROM for function of recovery for ADLS Goal Progress: Goal Met Goal 4:: Patient to improve neck oswestry score by 5 points to improve QOL and function Goal Progress: Goal Met Plan Plan: D/C D/C Information Discharge Comments: HEP d/c sentence: If there are questions or concerns regarding this patient's physical therapy, please feel free to call me at [phone]. Thank you for the referral of this patient. Sincerely, Alexei Tong, PT, Cert MDT, OCS Balance/Gait/Functional tests Balance/Special Test Scores Oswestry Neck Score: 0 Improvement % Improvement: 100
== END 2023-12-29 19:00 | disposition home or self-care (01) ==
LOC: PT 11:30
PROVIDERS: PCP Internal Medicine; Referring Provider Internal Medicine; Visit Provider Internal Medicine
DX: M54.12 Radiculopathy, cervical region (principal)
CPT/HCPCS: 97110; 97162

== ENCOUNTER → 2024-02-04 | Outpatient (CLI) | payer MEDICARE, OTHER, SELFPAY ==
--- NOTE | 2024-02-04 13:07 | CDU_ITS ---
Reason For Study: Carotid stenosis Rt. Velocities/BP Lt. Velocities/BP Prox CCA 82.5/12.6 cm/sec. Prox CCA 89.1/13.5 cm/sec. Mid CCA 72.1/15.4 cm/sec. Mid CCA 74/12.6 cm/sec. Dist CCA 74/12.6 cm/sec. Dist CCA 65.5/14.5 cm/sec. Prox ICA 76.2/10.2 cm/sec. Prox ICA 46.5/10.2 cm/sec. Mid ICA 54.2/13.5 cm/sec. Mid ICA 59.7/16.8 cm/sec. Dist ICA 69.6/17.9 cm/sec. Dist ICA 65.2/16.8 cm/sec. Rt. ICA/CCA = 1.03. Lt. ICA/CCA = 0.88. Prox ECA 146.7/11.5 cm/sec. Prox ECA 109.7/7.7 cm/sec. Rt. Vert. 52.6/5.5 cm/sec. Lt. Vert. 57.5/15.7 cm/sec. Right Extracranial There is homogeneous, smooth atherosclerotic plaque noted in the right common carotid artery. There is heterogeneous, irregular atherosclerotic plaque noted in the right internal carotid artery. There is homogeneous, smooth atherosclerotic plaque noted in the right external carotid artery. Antegrade flow is noted in the right vertebral artery. Left Extracranial There is homogeneous, smooth atherosclerotic plaque noted in the left common carotid artery. There is homogeneous, smooth atherosclerotic plaque noted in the left internal carotid artery. There is intimal thickening but no significant atherosclerotic plaque noted in the left external carotid artery. Antegrade flow is noted in the left vertebral artery. Procedure Carotid Duplex 84910. This is a Carotid Duplex examination using B-mode, color flow and specral Doppler. Exam performed in department. VL/Carotid Duplex Ultrasound Interpretation Summary Mild (<50%) stenosis right extracranial internal carotid. Mild (<50%) stenosis left extracranial internal carotid. Flow within the vertebral arteries is antegrade bilaterally. Ordering Physician: Cheryl García Referring Physician: Cheryl García D.O. Performed By: Parvin Crowell RVT
== END | disposition home or self-care (01) ==
LOC: CVS 13:06
PROVIDERS: PCP Internal Medicine; Visit Provider Internal Medicine
DX: I65.23 Occlusion and stenosis of bilateral carotid arteries (principal)
CPT/HCPCS: 93880

== ENCOUNTER → 2024-03-09 | Outpatient (CLI) | payer OTHER, MEDICARE, SELFPAY ==
--- NOTE | 2024-03-09 13:30 | CT_ITS ---
INDICATION: Liver fibrosis, NAFLD -- Triple phase as per HCC protocol EXAMINATION: CT ABDOMEN AND PELVIS WITH AND WITHOUT CONTRAST TECHNIQUE: Helically acquired images were obtained of the abdomen and pelvis both before and after IV contrast. A radiation dose optimization technique was used for this scan. IV Contrast dosage and agent: 100 cc of Isovue-370 Oral contrast: None. RADIATION DOSAGE (If Supplied By Facility): CTDIvol = ( 27.15 ) mGy, DLP = ( 3663.90 ) mGycm COMPARISON: MRCP of 12/01/2019. FINDINGS: LOWER CHEST: Lung bases are clear. No cardiomegaly or pericardial effusion. LIVER: Diffuse hepatic steatosis. No focal mass is seen. GALLBLADDER AND BILIARY TREE: No calcified gallstones. No gallbladder distension or wall edema. No intra- or extrahepatic biliary ductal dilation. PANCREAS: No focal cystic or solid mass. SPLEEN: Normal size without focal cystic or solid mass. ADRENAL GLANDS: No nodules. KIDNEYS AND URETERS: 2.7 cm simple cyst in the left kidney for which no further follow-up exam is needed. No hydronephrosis. PERITONEUM: No ascites or free air. No other fluid collection. BOWEL: No evidence of acute appendicitis. No stomach or bowel distension. No focal inflammatory change. LYMPH NODES: No enlarged mesenteric or retroperitoneal lymph nodes. VESSELS: Atherosclerotic calcifications of the abdominal aorta without evidence of aneurysm. URINARY BLADDER: Unremarkable. REPRODUCTIVE ORGANS: Significant artifacts and pelvic region from bilateral hip arthroplasty somewhat limiting the evaluation of the prostate. ABDOMINAL WALL: Small umbilical hernia containing fat. BONES: No lytic or blastic abnormality. Multilevel degenerative changes of the spine. CT/CT Abd/Pelvis W/WO Contrast IMPRESSION: 1. No focal lesion is seen in the liver. 2. Hepatic steatosis. 3. No focal acute inflammatory process. Electronically Signed: Marlon Weber MD at 14:55 EDT ,
== END | disposition home or self-care (01) ==
LOC: CT 13:27
PROVIDERS: PCP Internal Medicine; Referring Provider Internal Medicine; Visit Provider Internal Medicine
DX: K74.00 Hepatic fibrosis, unspecified (principal); E11.9 Type 2 diabetes mellitus without complications
CPT/HCPCS: 74178; Q9967

== ENCOUNTER → 2024-03-27 | Outpatient (CLI) | payer MEDICARE, OTHER, SELFPAY ==
[2024-03-27 11:25] LABS: Absolute Neutrophil Count 6.4 X10^3/uL (2.0-7.7); Basophil# 0.04 X10^3/uL; Basophil% 0.4 % (0-1); Eosinophil# 0.27 X10^3/uL; Eosinophils% 2.9 % (0-5); Hematocrit 43.2 % (40-54); Hemoglobin 14.2 g/dL (13.0-16.5); Lymphocyte % 21.2 % (19-41); Mean Corp Hgb Conc 32.9 g/dL (32-36); Mean Corpuscular Hgb 27.7 pg (27.0-32.0); Mean Corpuscular Volume 84.4 fL (80-94); Mean Platelet Vol. 9.2 fl (6.2-12.0); Monocyte# 0.73 X10^3/uL; Monocyte% 7.7 % (0-10); NRBC Flagged by Analyzer 0 % (0-5); Neutrophil # 6.39 X10^3/uL (2.7-7.7); Neutrophil % 67.6 % (47-70); Platelet Count 222 K/mm3 (150-450); RBC Distribution Width CV 14.5 % (11.6-14.6); RBC Distribution Width SD 44.2 fl (35.1-43.9); Red Blood Count 5.12 M/mm3 (4.6-6.2); White Blood Count 9.5 K/mm3 (4.4-11.0)
[2024-03-27 11:40] LABS: Prothrombin Time (Protime)PT. 13.5 SECONDS (11.7-14.9)
[2024-03-27 11:57] LABS: Vitamin D,25 Hydroxy 69.9 ng/mL
[2024-03-27 11:59] LABS: ALB/GLOB Ratio 0.9 RATIO (0.9-2.4); AST(SGOT) 16 U/L (15-37); Alanine Aminotransfer ALT/SGPT 25 U/L (16-61); Albumin, Serum 3.4 g/dL (3.2-5.0); Alkaline Phosphatase 137 U/L (45-117); Anion Gap 7 (5-15); BUN 18 mg/dL (7-18); BUN/Creat Ratio 18.5 RATIO (10-20); Calcium,Total 9.2 mg/dL (8.5-10.1); Chloride 106 mmol/L (98-107); Creatinine, Serum 0.98 mg/dL (0.70-1.30); EST Glomerular Filtration Rate 80 mL/min (>60); Est Glom Filt Rate - Afr Amer 97 mL/min (>60); Globulin 3.9 g/dL (2.2-4.2); Glucose 137 mg/dL (74-106); Potassium 3.5 mmol/L (3.5-5.1); Protein, Total 7.3 g/dL (6.4-8.2); Sodium Level 140 mmol/L (136-145)
[2024-03-28 13:08] LABS: AFP, Tumor Marker < 1.8 ng/mL (0.0-8.4)
== END | disposition home or self-care (01) ==
LOC: LAB 10:59
PROVIDERS: PCP Internal Medicine; Referring Provider Internal Medicine; Visit Provider Internal Medicine
DX: C84.A1 Cutaneous T-cell lymphoma, unspecified lymph nodes of head, face, and neck (principal); E11.9 Type 2 diabetes mellitus without complications; K74.00 Hepatic fibrosis, unspecified
CPT/HCPCS: 36415; 80053; 82105; 82306; 85025; 85610; 86140

== ENCOUNTER → 2024-08-21 | Outpatient (CLI) | payer MEDICARE, OTHER, SELFPAY | END | disposition home or self-care (01) | LOC: LAB 14:01 | PROVIDERS: PCP Internal Medicine; Referring Provider Nurse Practitioner; Visit Provider Nurse Practitioner | DX: Z12.5 Encounter for screening for malignant neoplasm of prostate (principal) | CPT/HCPCS: 36415; 84153; G0103 ==

== ENCOUNTER → 2024-09-14 | Outpatient (CLI) | payer MEDICARE, OTHER, SELFPAY ==
--- NOTE | 2024-09-14 07:00 | ECHOD_ITS ---
Reason For Study: Afib/Flutter Procedure This was a 2D Doppler, Color Flow transthoracic echocardiogram. Exam performed in department. Left Ventricle Normal LV size. Moderate concentric left ventricular hypertrophy. Left ventricular systolic function is normal. The left ventricular ejection fraction is 60 %. Stage 1 diastolic dysfunction. No regional wall motion abnormalities noted. Right Ventricle Normal RV size. Normal systolic function. Atria Normal left atrium. Normal right atrium. Mitral Valve Normal mitral valve. Tricuspid Valve Normal tricuspid valve. Mild tricuspid valve insufficiency. Pulmonary artery systolic pressure is 24 mmHg. Aortic Valve Trisinus/trileaflet aortic valve. Pulmonic Valve Normal pulmonic valve. Great Vessels Normal aortic root. The pulmonary artery is normal size. Normal inferior vena cava. Pericardium/Pleural No pericardial effusion. MMode/2D Measurements & Calculations LVIDd: 5.5 cm IVSd: 1.5 cm Ao root diam: 3.9 cm LVIDs: 4.3 cm LVPWd: 1.3 cm LA dimension: 4.1 cm RVDd: 4.7 cm FS: 21.9 % LAV(MOD-bp): 59.0 ml LA A4 area: 20.7 cm2 RA A4 area: 17.8 cm2 LAV(MOD-bp) Indexed: 23.1 ml/m2 LAV(MOD-sp2): 55.5 ml LAV(MOD-sp4): 60.5 ml TAPSE: 2.0 cm Time Measurements MV dec time: 0.22 sec Doppler Measurements & Calculations MV E max calvin: 62.9 cm/sec Lat Peak E' Calvin: 9.1 cm/sec Med Peak E' Calvin: 7.6 cm/sec MV A max calvin: 91.6 cm/sec E/E' lat: 6.9 E/E' med: 8.2 MV E/A: 0.69 MV V2 max: 110.3 cm/sec MV P1/2t max calvin: 88.4 cm/sec Ao V2 max: 141.5 cm/sec MV max P.9 mmHg MV P1/2t: 95.8 msec Ao max P.0 mmHg MV V2 mean: 56.0 cm/sec Ao V2 mean: 95.1 cm/sec MV mean P.5 mmHg MV dec slope: 270.3 cm/sec2 Ao mean P.2 mmHg MV V2 VTI: 36.6 cm MVA(P1/2t): 2.3 cm2 Ao V2 VTI: 30.9 cm AV (velocity ratio): 0.79 LV V1 max: 98.8 cm/sec PA V2 max: 100.0 cm/sec TR max calvin: 228.1 cm/sec LV V1 max P.9 mmHg PA max PG (full): 2.7 mmHg TR max P.8 mmHg LV V1 mean P.2 mmHg LV V1 mean: 70.0 cm/sec LV V1 VTI: 24.4 cm ECHO/Echo Complete Interpretation Summary Normal LV size. Left ventricular systolic function is normal. The left ventricular ejection fraction is 60 %. Moderate concentric left ventricular hypertrophy. Stage 1 diastolic dysfunction. Structurally normal valves. Ordering Physician: Desmond Mary Referring Physician: Desmond Mary Performed By: Robert Thomas and Student
--- NOTE | 2024-09-14 13:27 | STRESSREP ---
Stress Test Report Pharmacologic myocardial perfusion stress test. 74-year-old male with a history of chest pain Resting EKG demonstrates atrial fibrillation with a rate of 65 bpm. Resting blood pressure is 130/78 mmHg. 0.4 mg of regadenoson was infused per usual protocol followed by rapid intravenous saline flush injection. Continuous EKG monitoring was performed. The maximum heart rate was 75 bpm which was 51% of max impacted heart rate the maximum workload was 1 metabolic equivalent. At rest there were no ST or T wave changes noted to suggest ischemia and at peak infusion nonspecific ST changes were noted which did not meet the criteria for ischemia. No clinical angina is noted. The final blood pressure was 126/70 mmHg. Myocardial perfusion protocol. 9.6 mCi of technetium 99m sestamibi was injected at rest. 0.4 mg of regadenoson was infused per usual protocol. At peak infusion 33.5 mCi of technetium 99m sestamibi was injected stress images were obtained stress and rest images were reconstructed and compared in the short axis vertical long and horizontal long axis. Gated images were also obtained. Perfusion SPECT analysis: Review of the stress images demonstrate normal uptake of tracer noted in all areas of the myocardium. The resting images similar demonstrated normal uptake of tracer noted in all areas of the myocardium. No areas of reversibility are noted to suggest ischemia and no previous infarct is noted. Gated SPECT analysis: The gated ejection fraction is 62%. Conclusion: Normal pharmacologic myocardial perfusion stress test. Preserved ejection fraction.
== END | disposition home or self-care (01) ==
LOC: CVS 06:58
PROVIDERS: PCP Internal Medicine; Referring Provider Internal Medicine Cardiovascular Disease; Visit Provider Internal Medicine Cardiovascular Disease
DX: I48.0 Paroxysmal atrial fibrillation (principal); I25.10 Atherosclerotic heart disease of native coronary artery without angina pectoris
CPT/HCPCS: 78452; 93017; 93306; A9500; A4216; J2785

== ENCOUNTER → 2024-09-25 | Outpatient (CLI) | payer MEDICARE, OTHER, SELFPAY ==
[2024-09-25 12:43] LABS: Absolute Lymphocyte Count 1.98 X10^3/uL (0.83-4.51); Basophil# 0.03 X10^3/uL; Basophil% 0.4 % (0-1); Eosinophil# 0.28 X10^3/uL; Eosinophils% 3.5 % (0-5); Hematocrit 42.2 % (40-54); Hemoglobin 14.2 g/dL (13.0-16.5); Lymphocyte # 1.98 X10^3/ul (0.83-4.51); Lymphocyte % 24.9 % (19-41); Mean Corp Hgb Conc 33.6 g/dL (32-36); Mean Corpuscular Volume 83.1 fL (80-94); Mean Platelet Vol. 9.1 fl (6.2-12.0); Monocyte# 0.61 X10^3/uL; Monocyte% 7.7 % (0-10); NRBC Flagged by Analyzer 0 % (0-5); Neutrophil # 5.01 X10^3/uL (2.7-7.7); Platelet Count 223 K/mm3 (150-450); RBC Distribution Width CV 14.2 % (11.6-14.6); Red Blood Count 5.08 M/mm3 (4.6-6.2)
[2024-09-25 13:36] LABS: AST(SGOT) 22 U/L (15-37); Alanine Aminotransfer ALT/SGPT 31 U/L (16-61); Albumin, Serum 3.7 g/dL (3.2-5.0); Alkaline Phosphatase 115 U/L (45-117); Anion Gap 8 (5-15); BUN 16 mg/dL (7-18); BUN/Creat Ratio 16.2 RATIO (10-20); CRP 5.29 mg/L (0.0-3.0); Calcium,Total 9.7 mg/dL (8.5-10.1); Chloride 104 mmol/L (98-107); Cholesterol 159 mg/dL (200); Creatinine, Serum 0.99 mg/dL (0.70-1.30); EST Glomerular Filtration Rate 79 mL/min (>60); Est Glom Filt Rate - Afr Amer 96 mL/min (>60); Globulin 3.6 g/dL (2.2-4.2); Glucose 120 mg/dL (74-106); High Density Lipoprotein 49 mg/dL; Potassium 3.3 mmol/L (3.5-5.1); Protein, Total 7.3 g/dL (6.4-8.2); Sodium Level 138 mmol/L (136-145); Triglycerides 89 mg/dL; Very Low Density Lipoprotein 18 mg/dL (5-40)
[2024-09-25 13:54] LABS: Hemoglobin A1c 6.7 % (3.8-5.6)
== END | disposition home or self-care (01) ==
LOC: LAB 12:16
PROVIDERS: PCP Internal Medicine; Referring Provider Internal Medicine; Visit Provider Internal Medicine
DX: I10 Essential (primary) hypertension (principal); C84.A1 Cutaneous T-cell lymphoma, unspecified lymph nodes of head, face, and neck; E11.9 Type 2 diabetes mellitus without complications; K74.00 Hepatic fibrosis, unspecified
CPT/HCPCS: 36415; 80053; 80061; 83036; 85025; 85610; 86140

== ENCOUNTER 2024-10-23 11:11 | Outpatient (CLI) | payer MEDICARE, OTHER, SELFPAY ==
[2024-10-23 11:39] LABS: Anion Gap 7 (5-15); BUN 20 mg/dL (7-18); BUN/Creat Ratio 20.9 RATIO (10-20); Calcium,Total 9.8 mg/dL (8.5-10.1); Chloride 105 mmol/L (98-107); Creatinine, Serum 0.96 mg/dL (0.70-1.30); EST Glomerular Filtration Rate 82 mL/min (>60); Est Glom Filt Rate - Afr Amer 99 mL/min (>60); Glucose 124 mg/dL (74-106); Potassium 3.9 mmol/L (3.5-5.1); Sodium Level 138 mmol/L (136-145)
== END 2024-10-23 23:59 | disposition home or self-care (01) ==
LOC: PAVLAB 11:12
PROVIDERS: PCP Internal Medicine; Referring Provider Internal Medicine; Visit Provider Internal Medicine
DX: E87.6 Hypokalemia (principal)
CPT/HCPCS: 36415; 80048

== ENCOUNTER → 2024-11-06 | Outpatient (CLI) | payer MEDICARE, OTHER, SELFPAY ==
--- NOTE | 2024-11-06 09:37 | US_ITS ---
STUDY: ABDOMINAL ULTRASOUND - RIGHT UPPER QUADRANT; ELASTOGRAPHY REASON FOR VISIT: Male, 74 years old. Advanced liver fibrosis. NAFL D TECHNIQUE: Ultrasound evaluation of the right upper quadrant was performed with real-time and static rivas-scale imaging. Point quantification shear wave elastography was performed (Vidmaker). TECHNICAL QUALITY: Adequate. COMPARISON: Comparison is made with prior study dated October 27, 2022. FINDINGS: Liver: The liver is enlarged and measures 19.8 cm. There is increased echogenicity consistent with fatty infiltration. The bile ducts are within normal limits. There is hepatic color flow. The direction of portal flow is hepatopetal. There is no demonstrated mass lesion. Median liver stiffness measured 6.2 kPa. Gallbladder: Normal distended gallbladder. The gallbladder wall measures 2.0 mm. There is a negative sonographic Hartman''s sign. There is no pericholecystic fluid. There are no gallstones. Common Bile Duct (C.B.D.): The common bile duct measures 3.8 mm. Pancreas: There is increased echogenicity of the pancreas. There is no demonstrated pancreatic mass or cyst. Right Kidney: Normal size of the right kidney. The right kidney measures 11.9 cm x 5.4 cm x 4.8 cm. Normal renal cortex. The right cortex measures 1.1 cm. There is no demonstrated renal mass or cyst. There is no right hydronephrosis. IMPRESSION: 1. Liver stiffness measures 6.2 kPa compatible with F2-F3 (Mild to moderate liver fibrosis) Metavir score. 2. Hepatomegaly and fatty infiltration of the liver. Electronically Signed: Leodan Chou MD at 15:25 EST , STUDY: ABDOMINAL ULTRASOUND - LEFT UPPER QUADRANT REASON FOR EXAM: Male, 74 years old. Advanced liver fibrosis. NAFLD -- Including spleen TECHNIQUE: Transabdominal ultrasound was performed with real-time and static rivas scale imaging. TECHNICAL QUALITY: Adequate. COMPARISON: None. FINDINGS: Spleen: Normal size of the spleen. The spleen measures 12.5 cm x 4.5 cm x 4 cm. US/ABD Limited w/ Elastography IMPRESSION: The spleen measures within limits of normal. Electronically Signed: Leodan Chou MD at 15:26 EST ,
== END | disposition home or self-care (01) ==
LOC: US 09:37
PROVIDERS: PCP Internal Medicine; Referring Provider Internal Medicine; Visit Provider Internal Medicine
DX: K74.00 Hepatic fibrosis, unspecified (principal); K76.0 Fatty (change of) liver, not elsewhere classified
CPT/HCPCS: 76705; 76981

== ENCOUNTER → 2024-11-23 | Outpatient (CLI) | payer MEDICARE, OTHER, SELFPAY ==
--- NOTE | 2024-11-23 12:57 | CT_ITS ---
INDICATION: HX OF T CELL LYMPHOMA/LUNG NODULE ON CT- MEDIASTINAL ADENOPATHY EXAMINATION: CT Chest And Abdomen W/ Contrast Injection TECHNIQUE: Images were obtained of the chest and abdomen following IV contrast. A radiation dose optimization technique was used for this scan. IV Contrast dosage and agent: IV 100mL Isovue-300 COMPARISON: 03/09/2024. FINDINGS: Lungs: Unremarkable Mediastinum: The cardiomediastinal silhouette is not enlarged. There is mediastinal lymphadenopathy, for example a 2.5 cm right paratracheal node. Mild aortic arch and coronary artery calcifications. No obvious filling defect seen within the visualized pulmonary arteries. Pleura: Unremarkable Liver: Unremarkable Gallbladder: Unremarkable Spleen: Unremarkable Pancreas: Unremarkable Adrenal Glands: Unremarkable Kidneys: Simple cyst in the left kidney. Vasculature: Mild scattered aortoiliac atherosclerotic calcifications. GI Tract: Unremarkable Lymphadenopathy: None Peritoneum: No ascites. Bones/Soft tissues: Mild scattered degenerative changes of the visualized spine. CT/CT Chest AND Abd W/ Contrast IMPRESSION: Mediastinal lymphadenopathy. Otherwise no acute abnormalities in the chest or abdomen. Electronically Signed: Madi Summers MD at 1:54 EST ,
== END | disposition home or self-care (01) ==
LOC: CT 12:57
PROVIDERS: PCP Internal Medicine; Referring Provider Internal Medicine Medical Oncology; Visit Provider Internal Medicine Medical Oncology
DX: C84.A1 Cutaneous T-cell lymphoma, unspecified lymph nodes of head, face, and neck (principal); R93.89 Abnormal findings on diagnostic imaging of other specified body structures
CPT/HCPCS: 71260; 74160; Q9967

== ENCOUNTER → 2024-12-12 | Outpatient (CLI) | payer MEDICARE, OTHER, SELFPAY ==
[2024-12-12 12:49] LABS: Anion Gap 7 (5-15); BUN 26 mg/dL (7-18); Calcium,Total 9.7 mg/dL (8.5-10.1); Chloride 106 mmol/L (98-107); EST Glomerular Filtration Rate 78 mL/min (>60); Est Glom Filt Rate - Afr Amer 94 mL/min (>60); Glucose 117 mg/dL (74-106); Potassium 3.7 mmol/L (3.5-5.1); Sodium Level 139 mmol/L (136-145)
== END | disposition home or self-care (01) ==
LOC: LAB 11:43
PROVIDERS: PCP Internal Medicine; Referring Provider Internal Medicine; Visit Provider Internal Medicine
DX: E78.5 Hyperlipidemia, unspecified (principal)
CPT/HCPCS: 36415; 80048

== ENCOUNTER → 2025-01-08 | Outpatient (CLI) | payer MEDICARE, OTHER, SELFPAY ==
--- NOTE | 2025-01-08 08:56 | CDU_ITS ---
Reason For Study Reason For Study: Carotid Stenosis Rt. Velocities/BP Lt. Velocities/BP Prox CCA 83/11 cm/sec. Prox CCA 76/15 cm/sec. Mid CCA 68/13 cm/sec. Mid CCA 90/15 cm/sec. Dist CCA 70/14 cm/sec. Dist CCA 77/16 cm/sec. Prox ICA 74/10 cm/sec. Prox ICA 64/12 cm/sec. Mid ICA 53/14 cm/sec. Mid ICA 57/20 cm/sec. Dist ICA 68/22 cm/sec. Dist ICA 71/19 cm/sec. Rt. ICA/CCA = 1.1. Lt. ICA/CCA = 0.8. Prox ECA 127/8 cm/sec. Prox ECA 120/11 cm/sec. Rt. Vert. 44/5 cm/sec. Lt. Vert. 42/11 cm/sec. Right Extracranial There is heterogeneous, irregular atherosclerotic plaque noted in the right common carotid artery. There is heterogeneous, irregular atherosclerotic plaque noted in the right internal carotid artery. There is intimal thickening but no significant atherosclerotic plaque noted in the right external carotid artery. Antegrade flow is noted in the right vertebral artery. Left Extracranial There is heterogeneous, irregular atherosclerotic plaque noted in the left common carotid artery. There is intimal thickening but no significant atherosclerotic plaque noted in the left internal carotid artery. There is no significant atherosclerotic plaque noted in the left external carotid artery. Antegrade flow is noted in the left vertebral artery. Procedure Carotid Duplex 02930. This is a Carotid Duplex examination using B-mode, color flow and specral Doppler. Exam performed in department. VL/Carotid Duplex Ultrasound Interpretation Summary Mild (<50%) stenosis right extracranial internal carotid. Mild (<50%) stenosis left extracranial internal carotid. Flow within the vertebral arteries is antegrade bilaterally. Ordering Physician: Cheryl García Referring Physician: Cheryl García Performed By: Mary Fernandez, JORDANA, RVT
== END | disposition home or self-care (01) ==
LOC: CVS 08:56
PROVIDERS: PCP Internal Medicine; Referring Provider Internal Medicine; Visit Provider Internal Medicine
DX: I65.23 Occlusion and stenosis of bilateral carotid arteries (principal)
CPT/HCPCS: 93880

== ENCOUNTER → 2025-03-22 | Outpatient (CLI) | payer MEDICARE, OTHER, SELFPAY ==
--- NOTE | 2025-03-22 13:02 | CT_ITS ---
PROCEDURE: CHEST WITH CONTRAST 03/22/2025 REASON FOR EXAM: MEDIASTINAL LYMPHADENOPATHY TECHNIQUE: Prone and supine chest CT with intravenous contrast, high resolution CT (HRCT) protocol. Coronal and Sagittal reconstruction series were provided. CONTRAST: Isovue 370 VOLUME: 100 mL One or more dose reduction techniques were used (e.g., Automated exposure control, adjustment of the mA and/or kV according to patient size, use of iterative reconstruction technique). RADIATION DOSE SUMMARY: CTDlvol: 30 mGy DLP: 800 mGycm COMPARISON: PET-CT 12/12/2024, CT chest 11/23/2024. FINDINGS: Hardware: None. Lymph nodes: Stable to slight decreased size of the mildly prominent mediastinal nodes. No new or enlarging lymphadenopathy. Heart and Vasculature: The heart is normal in size without pericardial effusion. Mild coronary artery and thoracic aortic calcifications. The great vessels are normal in caliber. Lungs and Airways: The central airways are patent. Bibasilar atelectasis/scarring. No suspicious pulmonary nodule. No pleural effusion or pneumothorax. Upper Abdomen: Unremarkable. Bones: Thoracic spondylosis with multilevel anterior bridging vertebral body osteophytes, compatible with DISH. CT/Chest WITH Contrast IMPRESSION: Stable to slight decreased size of the mildly prominent mediastinal nodes. No new or enlarging lymphadenopathy. Reading Location: [id number]
[2025-03-22 13:29] LABS: CREATININE FINGERSTICK 1.1 mg/dL (0.70-1.30); EGFR FINGERSTICK > 60.0000 mL/min (>60)
== END | disposition home or self-care (01) ==
LOC: CT 13:02
PROVIDERS: PCP Internal Medicine; Referring Provider Internal Medicine Hematology & Oncology; Visit Provider Internal Medicine Hematology & Oncology
DX: R59.0 Localized enlarged lymph nodes (principal)
CPT/HCPCS: 71260; Q9967

== ENCOUNTER → 2025-06-04 | Outpatient (CLI) | payer MEDICARE, OTHER, SELFPAY ==
--- NOTE | 2025-06-04 09:31 | US_ITS ---
PROCEDURE: ABD LIMITED W/ ELASTOGRAPHY REASON FOR EXAM: GALE CIRRHOSIS COMPARISON: None. TECHNIQUE: Right upper quadrant abdominal ultrasound. Fr[facility]ico ElastQ Imaging shear wave elastography for non-invasive assessment of liver tissue stiffness. [employer]ico EPIQ Elite. FINDINGS: LIVER: Size: Enlarged (hepatomegaly) Length: 19.3 cm Echotexture: Diffusely echogenic suggesting fatty infiltration Contour: Normal Lesions: None identified Elastography: EQI Med: 8.3 kPa EQI Med Calvin: 1.66 m/s IQR/Med: 15 %* GALLBLADDER: Normal COMMON BILE DUCT: Not visualized due to overlying bowel gas. . PANCREAS: Normal Visualized portions of the right kidney are unremarkable. No right upper quadrant ascites. Spleen: The spleen measures 11.7 cm 4.6 cm 4.7 cm. US/ABD Limited w/ Elastography IMPRESSION: Moderate hepatic fibrosis. Hepatomegaly and diffuse fatty infiltration of the liver. Reference Values: SRU <1.37 m/s (5.7kPa): No to mild fibrosis 1.37 m/s - 2.2 m/s: Moderate to severe fibrosis >2.2 m/s (15kPa): Significant fibrosis / cirrhosis METAVIR Score F2 or higher: 1.34 m/s (5.7kPa) F3 or higher: 1.55 m/s (7.3kPa) F4: 1.80 m/s (10kPa) * If the IQR/Med is >30%, the variance in the measurements is a large and the a ccuracy of the measurement may be in question. Reading Location: [place] [id number]
== END | disposition home or self-care (01) ==
LOC: US 09:31
PROVIDERS: PCP Internal Medicine; Referring Provider Internal Medicine; Visit Provider Internal Medicine
DX: K74.60 Unspecified cirrhosis of liver (principal); K76.0 Fatty (change of) liver, not elsewhere classified; R59.0 Localized enlarged lymph nodes; Z85.72 Personal history of non-Hodgkin lymphomas
CPT/HCPCS: 76705; 76981

== ENCOUNTER → 2025-07-24 | Outpatient (CLI) | payer MEDICARE, OTHER, SELFPAY ==
[2025-07-24 12:43] LABS: Hematocrit 43.6 % (40-54); Hemoglobin 15.1 g/dL (13.0-16.5); Immature Granulocytes Count 0.040 X10^3/uL (0.0-0.0); Mean Corp Hgb Conc 34.6 g/dL (32-36); Mean Corpuscular Volume 88.3 fL (80-94); Mean Platelet Vol. 10.2 fl (6.2-12.0); NRBC Flagged by Analyzer 0 % (0-5); Platelet Count 223 K/mm3 (150-450); RBC Distribution Width CV 14.1 % (11.6-14.6); RBC Distribution Width SD 45.1 fl (35.1-43.9); Red Blood Count 4.94 M/mm3 (4.6-6.2); White Blood Count 7.5 K/mm3 (4.4-11.0)
[2025-07-24 12:45] LABS: Prothrombin Time (Protime)PT. 13.4 SECONDS (11.7-14.9)
[2025-07-24 13:03] LABS: Creatinine, Urine (random) 199.00 mg/dL (39.00-259.00); Microalbumin,Random Urine 14.4 mg/L (<20 mg/L)
[2025-07-24 13:31] LABS: AST(SGOT) 29 U/L (<=37); Alanine Aminotransfer ALT/SGPT 26 U/L (<=46); Albumin, Serum 4.2 g/dL (3.4-4.8); Alkaline Phosphatase 116 U/L (40-129); Anion Gap 12 (5-15); BUN 20 mg/dL (4-19); BUN/Creat Ratio 19.3 RATIO (10-20); Calcium,Total 9.8 mg/dL (7.6-11.0); Carbon Dioxide 22.6 mmol/L (21.0-32.0); Chloride 103 mmol/L (98-108); Cholesterol 143 mg/dL (<=200); Globulin 2.9 g/dL (2.2-4.2); Glucose 120 mg/dL (70-99); Low Density Lipoprotein Calc. 78 mg/dL; Potassium 4.0 mmol/L (3.3-5.1); Triglycerides 115 mg/dL; Very Low Density Lipoprotein 23 mg/dL (5-40); Vitamin D,25 Hydroxy 75.4 ng/mL (30-100); cholesterol:hdl ratio screen 3.41
== END | disposition home or self-care (01) ==
LOC: MTLAB 09:45
PROVIDERS: Internal Medicine; PCP Internal Medicine; Referring Provider Internal Medicine; Visit Provider Internal Medicine
DX: E11.65 Type 2 diabetes mellitus with hyperglycemia (principal); I10 Essential (primary) hypertension; E78.5 Hyperlipidemia, unspecified; E55.9 Vitamin D deficiency, unspecified; K76.0 Fatty (change of) liver, not elsewhere classified; K74.00 Hepatic fibrosis, unspecified
CPT/HCPCS: 36415; 80053; 80061; 82043; 82306; 82570; 83036; 84443; 85025; 85610

== ENCOUNTER 2025-07-27 12:00 | Outpatient (RCR) | payer MEDICARE, OTHER, SELFPAY ==
--- NOTE | 2025-04-24 16:13 | HP.PTEVAL_ITS ---
Patient's Visit Information Visit Information Visit Information: KEYON JOHN is a 74 year old M referred to Physical Therapy by Dr. Cheryl García DO with a diagnosis of LBP. Date of Evaluation: 04/24/25 Physical Therapist: Alexei Tong, PT, Cert MDT, OCS Visit Plan Frequency: 2x /Week Duration: 4 Weeks Plan: PT INTERVENTIONS AQUATIC THERAPY FOR LUMBAR ROM ,DLS ,POSTURAL EX'S LE STRENGTHENING ,FLEXABILITY BLE AND ACTIVITY MODIFICATION Subjective Subjective: This 74 y/o male presents physical therapy with back pain. Patient has lumbar pain many years. Patient has h/o lumbar surgery laminectomy 2017 DR Araya ,Right TKR 2011,left THR left 2004. Patient also had hematoma left leg with caused paresthesia/tingling. Patient has had prior Aquatic PT in past. patient had incident bending over to assist spouse to dress past week . Patient developed lumbar pain. Seen DR Routine visit every 3 months. No imaging. No medication. Patient has had symmetrical lumbar no radicular symptoms . Aggravating factors bending /stretching ,lifting ,standing , extended walking. Alleviating sitting rest. Coughing/sneezing-. Bowel/bladder -. Sleeping good . Has c-pap for sleeping. Patient condition and comorbities influences condition. Goals to decrease pain SOCIAL: Pain Bilateral Back: Pain Intensity (Out of 10): 6 Pain Intensity Range: 10 Comment: stretching ,rest 0/10 Objective Objective: POSTURE: mild forward posture GAIT: reciprocal pattern NEURO: denies paresthesia/tingling , reflexes L3-4,L4-5,L5-S1 1/3 SYMMETRICAL : align LUMBAR ROM: flexion mod ,extension mod loss ,mod loss FLEXABILITY: hamstrings mod tight MMT: quads/hams 4/5 ,hip flexion 4-/5 ,ankle 5/5 Special Tests L/S Slump test left side: Negative L/S Slump test right side: Negative L/S Left Straight Leg Raise: Negative L/S Right Straight Leg Raise: Negative Lumbar Standing: Flexion - Mechanical Response: No effect Lumbar Standing: Flexion - Symptoms During Testing: Increases Lumbar Standing: Flexion - Symptoms After Testing: Worse Lumbar Standing: Extension - Mechanical Response: No effect Lumbar Standing: Extension - Symptoms During Testing: No effect Lumbar Standing: Extension - Symptoms After Testing: No effect Lumbar Standing: Right Side Glides - Mechanical Response: No effect Lumbar Standing: Right Side [place] - Symptoms During Testing: No effect Lumbar Standing: Right Side [place] - Symptoms After Testing: No effect Lumbar Standing: Left Side [place] - Mechanical Response: No effect Lumbar Standing: Left Side [place] - Symptoms During Testing: No effect Lumbar Standing: Left Side [place] - Symptoms After Testing: No effect Balance/Special Test Scores Oswestry Low Back Score: 23 Goals Goal 1:: Patient to be I with Aquatic Therapy program Goal Time Frame: 4-6 Weeks Goal 2:: Patient to improve lumbar ROM for function of recovery to put on shoes Goal Time Frame: 4-6 Weeks Goal 3:: Patient to demonstrate 50% improvement to improve function and gait Goal Time Frame: 4-6 Weeks Goal 4:: Patient to improve back oswestry score by 5 points to improve QOL and function Goal Time Frame: 4-6 Weeks Rehabilitation Potential Physical Therapy Diagnosis: This patient has lumbar pain with positioning and motion with h/o lumbar surgery with present symptoms worse with bending /lifting better sitting thus benefit from skilled PT Rehabilitation Potential: Good Anticipated Interventions Patient/Client Instruction: Educate patient on: Condition and Plan of Care For the Purpose of:: To decrease pain, To increase ROM, To improve muscle performance and motor function, To improve ability to perform ADL's, To increase tolerance to activity/condition/position, To improve health of tissue, To decrease soft tissue restriction, To increase flexibility/ROM and To improve tolerance to ADL's Therapeutic Exercise to Include: Strength training, Postural training, Flexibilty training, "In an aquatic setting" and Dynamic Lumbar Stabilization Comment: BLE For the Purpose of:: To decrease pain, To increase ROM, To improve muscle performance and motor function, To improve ability to perform ADL's, To increase tolerance to activity/condition/position, To improve ability of physical actions for home/community/work/leisure, To improve gait and locomotor functions, To improve health of tissue, To decrease soft tissue restriction and To increase flexibility/ROM Text: Thank you for the opportunity to evaluate your patient. For Medicare and Medicare HMO plans, please review the plan of care and approve it. It will need to be FAXED BACK to us at [phone] for Medicare purposes. For Medicare only, by signing this I certify the plan of care. Please let me know if there are questions or concerns regarding this plan of care. Physician Signature: Date:
--- NOTE | 2025-05-30 15:22 | HP.PTREVAL ---
Re-Evaluation Intro: Dr. Cheryl García, DO, It has been my pleasure to treat KEYON JOHN over the last 8 visits for LBP. Please see the progress note below for an update on the physical therapy plan of care! Subjective Subjective: Back pain worse with bending over lifting or flexion Objective Objective/Function: Objective: POSTURE: mild forward posture GAIT: reciprocal pattern NEURO: denies paresthesia/tingling , reflexes L3-4,L4-5,L5-S1 1/ SYMMETRICAL : align LUMBAR ROM: flexion mod ,extension mod loss ,mod loss FLEXABILITY: hamstrings mod tight MMT: quads/hams 4/5 ,hip flexion 4-/5 ,ankle 5/5 Plan Plan Plan: Objective: POSTURE: mild forward posture GAIT: reciprocal pattern NEURO: denies paresthesia/tingling , reflexes L3-4,L4-5,L5-S1 1/ SYMMETRICAL : align LUMBAR ROM: flexion min ,extension min loss ,mod loss side FLEXABILITY: hamstrings mod tight MMT: quads/hams 4/5 ,hip flexion 44/5 ,ankle 5/5 Balance/Gait/Functional tests Balance/Special Test Scores Oswestry Low Back Score: 21 Goals Goals Goal 1:: Patient to be I with Aquatic Therapy program Goal Time Frame: 4-6 Weeks Goal Progress: Progressing Goal 2:: Patient to improve lumbar ROM for function of recovery to put on shoes Goal Time Frame: 4-6 Weeks Goal Progress: Progressing Goal 3:: Patient to demonstrate 50% improvement to improve function and gait Goal Time Frame: 4-6 Weeks Goal Progress: Progressing Goal 4:: Patient to improve back oswestry score by 5 points to improve QOL and function Goal Time Frame: 4-6 Weeks Goal Progress: Progressing Anticipated Interventions Anticipated Interventions Patient/Client Instruction: Educate patient on: Condition and Plan of Care For the Purpose of:: To decrease pain, To increase ROM, To improve muscle performance and motor function, To improve ability to perform ADL's, To increase tolerance to activity/condition/position, To improve health of tissue, To decrease soft tissue restriction, To increase flexibility/ROM and To improve tolerance to ADL's Therapeutic Exercise to Include: Strength training, Postural training, Flexibilty training, "In an aquatic setting" and Dynamic Lumbar Stabilization Comment: BLE For the Purpose of:: To decrease pain, To increase ROM, To improve muscle performance and motor function, To improve ability to perform ADL's, To increase tolerance to activity/condition/position, To improve ability of physical actions for home/community/work/leisure, To improve gait and locomotor functions, To improve health of tissue, To decrease soft tissue restriction and To increase flexibility/ROM Re-Evaluation Ending Re-evaluation ending: Please do not hesitate to contact me at [phone] by phone or if you have questions or concerns regarding this new plan of care! Sincerely, Alexei Tong, PT, Cert MDT, OCS
--- NOTE | 2025-06-26 13:32 | HP.PTREVAL ---
Re-Evaluation Intro: Dr. Cheryl García, DO, It has been my pleasure to treat KEYON JOHN over the last 15 visits for LBP. Please see the progress note below for an update on the physical therapy plan of care! Subjective Subjective: Patient reports better - walker better and further - able to bend better to slip on shoes - 15 mins to stand Objective Objective/Function: POSTURE: mild forward posture GAIT: reciprocal pattern NEURO: denies paresthesia/tingling , reflexes L3-4,L4-5,L5-S1 1/3 SYMMETRICAL : align LUMBAR ROM: flexion min ,extension min loss ,mod loss side glides min FLEXABILITY: hamstrings mod tight MMT: quads/hams 4/5 ,hip flexion 4-/5 ,ankle 5/5 Plan Plan Plan: PT INTERVENTIONS AQUATIC THERAPY FOR LUMBAR ROM ,DLS ,POSTURAL EX'S, LE STRENGTHENING ,FLEXABILITY BLE AND ACTIVITY MODIFICATION Balance/Gait/Functional tests Balance/Special Test Scores Oswestry Low Back Score: 20 Goals Goals Goal 1:: Patient to be I with Aquatic Therapy program Goal Time Frame: 4-6 Weeks Goal Progress: Progressing Goal 2:: Patient to improve lumbar ROM for function of recovery to put on shoes Goal Time Frame: 4-6 Weeks Goal Progress: Progressing Goal 3:: Patient to demonstrate 50% improvement to improve function and gait Goal Time Frame: 4-6 Weeks Goal Progress: Progressing Goal 4:: Patient to improve back oswestry score by 5 points to improve QOL and function Goal Time Frame: 4-6 Weeks Goal Progress: Progressing Anticipated Interventions Anticipated Interventions Patient/Client Instruction: Educate patient on: Condition and Plan of Care For the Purpose of:: To decrease pain, To increase ROM, To improve muscle performance and motor function, To improve ability to perform ADL's, To increase tolerance to activity/condition/position, To improve health of tissue, To decrease soft tissue restriction, To increase flexibility/ROM and To improve tolerance to ADL's Therapeutic Exercise to Include: Strength training, Postural training, Flexibilty training, "In an aquatic setting" and Dynamic Lumbar Stabilization Comment: BLE For the Purpose of:: To decrease pain, To increase ROM, To improve muscle performance and motor function, To improve ability to perform ADL's, To increase tolerance to activity/condition/position, To improve ability of physical actions for home/community/work/leisure, To improve gait and locomotor functions, To improve health of tissue, To decrease soft tissue restriction and To increase flexibility/ROM Re-Evaluation Ending Re-evaluation ending: Please do not hesitate to contact me at [phone] by phone or if you have questions or concerns regarding this new plan of care! Sincerely, Alexei Tong, PT, Cert MDT, OCS
--- NOTE | 2025-07-27 12:29 | HP.PTDCSUM ---
Discharge Summary D/C summary: It has been my pleasure to treat KEYON JOHN referred by Dr. Cheryl Macario DO, with the diagnosis of LBP for a total of 21 visit(s). Discharge Date: Please see the following information for a summary of their discharge status. Subjective Subjective: Doing well Overall better , Seen DR MACARIO ,Lost 28 # Stiff but able to move Pain Bilateral Back: Pain Intensity (Out of 10): 0 Overall Improvement % Improvement: 60 Objective Objective/Function: POSTURE: mild forward posture GAIT: reciprocal pattern NEURO: denies paresthesia/tingling , reflexes L3-4,L4-5,L5-S1 1/3 SYMMETRICAL : align LUMBAR ROM: flexion min ,extension min loss side glides min FLEXABILITY: hamstrings mod tight MMT: quads/hams 5/5 ,hip flexion 4/5 ,ankle 5/5 Goals Goal 1:: Patient to be I with Aquatic Therapy program Goal Progress: Goal Met Goal 2:: Patient to improve lumbar ROM for function of recovery to put on shoes Goal Progress: Goal Met Goal 3:: Patient to demonstrate 50% improvement to improve function and gait Goal Progress: Goal Met Goal 4:: Patient to improve back oswestry score by 5 points to improve QOL and function Goal Progress: Goal Met Plan Plan: D/C TO HEP AND GYM D/C Information d/c sentence: If there are questions or concerns regarding this patient's physical therapy, please feel free to call me at [phone]. Thank you for the referral of this patient. Sincerely, Alexei Tong, PT, Cert MDT, OCS Balance/Gait/Functional tests Balance/Special Test Scores Oswestry Low Back Score: 7 Improvement % Improvement: 60
== END 2025-07-27 19:00 | disposition home or self-care (01) ==
LOC: PT 12:00
PROVIDERS: PCP Internal Medicine; Referring Provider Internal Medicine; Visit Provider Internal Medicine
DX: M54.50 Low back pain, unspecified (principal)
CPT/HCPCS: 97113; 97162; 97530

== ENCOUNTER → 2025-08-21 | Outpatient (CLI) | payer MEDICARE, OTHER, SELFPAY ==
[2025-08-21 16:48] LABS: PSA,Total - Annual Screen 1.00 ng/mL (0.02-4.00)
== END | disposition home or self-care (01) ==
LOC: LAB 14:49
PROVIDERS: PCP Internal Medicine; Referring Provider Urology; Visit Provider Urology
DX: Z12.5 Encounter for screening for malignant neoplasm of prostate (principal)
CPT/HCPCS: 36415; 84153; G0103

== ENCOUNTER 2025-09-11 13:24 | Outpatient (RCR) | payer MEDICARE, OTHER, SELFPAY | END 2025-09-21 23:59 | LOC: NS 13:24 | PROVIDERS: PCP Internal Medicine; Referring Provider Internal Medicine; Visit Provider Internal Medicine | DX: Z71.3 Dietary counseling and surveillance (principal); E11.9 Type 2 diabetes mellitus without complications; E66.9 Obesity, unspecified; Z68.35 Body mass index [BMI] 35.0-35.9, adult | CPT/HCPCS: 97802 ==